=== PATIENT | female | born 1970 | race Caucasian/White ===

== ENCOUNTER 2017-05-28 12:52 | Inpatient (IN) | payer OTHER ==
[2017-05-28 17:31] VITALS: BMI 34.5
--- NOTE | 2017-05-28 19:08 | HP ---
CIWA Score - CIWA Score Nausea/Vomitin-Mild Nausea/No Vomiting Muscle Tremors: 4-Moderate,w/Arms Extend Anxiety: 4-Mod. Anxious/Guarded Agitation: 4-Moderately Restless Paroxysmal Sweats: 1-Minimal Palms Moist Orientation: 0-Oriented Tacttile Disturbances: 0-None Auditory Disturbances: 0-None Visual Disturbances: 0-None Headache: 0-None Present CIWA-Ar Total Score: 14 Admission ROS S - HPI Chief Complaint: withdrawal sx Allergies/Adverse Reactions: Allergies Allergy/AdvReac Type Severity Reaction Status Date / Time No Known Allergies Allergy Verified 05/28/17 17:44 History of Present Illness: 46 years old female with long history of xanax nicotine dependence has hepatitis c and varicose vein both legs x 10 years asthma, and depression is admitted to detox Exam Limitations: No Limitations - Ebola screening Have you traveled outside of the country in the last 21 days: No Have you had contact with anyone from an Ebola affected area: No Have you been sick,other than usual withdrawal symptoms: No Do you have a fever: No - Review of Systems Constitutional: Changes in sleep, Weight Stable EENT: reports: Blurred Vision (needs eye glasses) Respiratory: reports: SOB with Exertion Cardiac: reports: Edema (both legs) GI: reports: Nausea, Poor Fluid Intake, Abdominal cramping : reports: No Symptoms Reported Musculoskeletal: reports: Joint Pain (knees), Muscle Pain (legs) Integumentary: reports: Change in Color (both legs varicos veins) Neuro: reports: Tremors Endocrine: reports: No Symptoms Reported Hematology: reports: No Symptoms Reported Psychiatric: reports: Judgement Intact, Orientated x3, Depressed Other Systems: Reviewed and Negative Patient History - Patient Medical History Hx Anemia: No Hx Asthma: Yes Hx Chronic Obstructive Pulmonary Disease (COPD): No Hx Cancer: No Hx Cardiac Disorders: No Hx Congestive Heart Failure: No Hx Hypertension: No Hx Hypercholesterolemia: No Hx Pacemaker: No HX Cerebrovascular Accident: No Hx Seizures: No Hx Dementia: No Hx Diabetes: No Hx Gastrointestinal Disorders: No Hx Liver Disease: No Hx Genitourinary Disorders: No Hx Sexually Transmitted Disorders: No Hx Renal Disease (ESRD): No Hx Thyroid Disease: No Hx Human Immunodeficiency Virus (HIV): No Hx Hepatitis C: Yes Hx Depression: Yes Hx Suicide Attempt: No Hx Bipolar Disorder: No Hx Schizophrenia: No - Patient Surgical History Past Surgical History: Yes Hx Neurologic Surgery: No Hx Cataract Extraction: No Hx Cardiac Surgery: No Hx Lung Surgery: No Hx Breast Surgery: No Hx Breast Biopsy: No Hx Abdominal Surgery: No Hx Appendectomy: No Hx Cholecystectomy: No Hx Genitourinary Surgery: No Hx Section: Yes (x 1 2000) Hx Orthopedic Surgery: No Hx Hysterectomy: No Anesthesia Reaction: No - PPD History Previous Implant?: Yes Documented Results: Negative w/o proof Implanted On Prior [facility] Admission?: No PPD to be Administered?: Yes - Smoking Cessation Smoking history: Current every day smoker Have you smoked in the past 12 months: Yes Aproximately how many cigarettes per day: 4 Cigars Per Day: 0 Hx Chewing Tobacco Use: No Initiated information on smoking cessation: Yes 'Breaking Loose' booklet given: 05/28/17 - Substance & Tx. History Hx Alcohol Use: No Hx Substance Use: Yes Substance Use Type: Tranquilizers Hx Substance Use Treatment: Yes (2014) - Substances Abused Alprazolam (Xanax) Route: Oral Frequency: Daily Amount used: 8mg Age of first use: 17 Date of Last Use: 05/28/17 Family Disease History - Family Disease History Family Disease History: Diabetes: Brother, [place]: Mother (), Other: Father (no contact), Mother Admission Physical Exam BHS - Vital Signs Vital Signs: Vital Signs - 24 hr 05/28/17 17:28 Temperature 97.3 F L Pulse Rate 67 Respiratory 18 Rate Blood Pressure 125/70 - Physical General Appearance: Yes: Appropriately Dressed, Mild Distress, Obese, Tremorous , Irritable, Sweating, Anxious HEENTM: Yes: Hearing grossly Normal, Normal ENT Inspection, Normocephalic, Normal Voice Respiratory: Yes: Chest Non-Tender, No Respiratory Distress, No Accessory Muscle Use, Wheezing Neck: Yes: Supple, Trachea in good position Breast: Yes: Breasts Symetrical Cardiology: Yes: Regular Rhythm, Regular Rate, S1, S2 Abdominal: Yes: Normal Bowel Sounds, Non Tender, Soft Genitourinary: Yes: Within Normal Limits Back: Yes: Normal Inspection Musculoskeletal: Yes: full range of Motion, Gait Steady, Muscle Pain (legs) Extremities: Yes: Normal Range of Motion, Non-Tender, Tremors, Swelling (both legs) Neurological: Yes: Fully Oriented, Alert, Motor Strength 5/5, Normal Response, Depressed Affect Integumentary: Yes: Warm, Erythema (both legs) Lymphatic: Yes: Within Normal Limits - Diagnostic (1) Sedative, hypnotic or anxiolytic dependence with withdrawal, uncomplicated Current Visit: Yes Status: Acute (2) Cocaine dependence, uncomplicated Current Visit: Yes Status: Chronic (3) Methadone maintenance therapy patient Current Visit: Yes Status: Chronic Comment: 115 mg verification pending (4) Nicotine dependence Current Visit: Yes Status: Acute Qualifiers: Nicotine product type: cigarettes Substance use status: in withdrawal Qualified Code(s): F17.213 - Nicotine dependence, cigarettes, with withdrawal; F17.213 - Nicotine dependence, cigarettes, with withdrawal (5) Hepatitis C carrier Current Visit: Yes Status: Chronic (6) Asthma Current Visit: Yes Status: Chronic Qualifiers: Asthma severity: mild (7) Varicose vein of leg Current Visit: Yes Status: Chronic (8) Depression (emotion) Current Visit: Yes Status: Suspected Qualifiers: Depression Type: dysthymia Qualified Code(s): F34.1 - Dysthymic disorder; F34.1 - Dysthymic disorder; F34.1 - Dysthymic disorder Cleared for Admission [facility] - Detox or Rehab [facility] Level of Care: Medically Managed Detox Regimen/Protocol: Valium [facility] Breath Alcohol Content Breath Alcohol Content: 0 Urine Pregancy Test - Result Urine Test Results: Negative- NO Line Present Urine Drug Screen - Results Drug Screen Negative: No Urine Drug Screen Results: EMMETT-Cocaine, OPI-Opiates, BZO-Benzodiazepines, MTD- Methadone
[2017-05-28] MEDS ORDERED: MENTHOL/PHENOL 1 EACH UD MM PRN (19:11)
[2017-05-28] MEDS ORDERED: MAG HYDROX/AL HYDROX/SIMETH 30 ML UNIT-DOSE CUP PO PRN (19:11)
[2017-05-28] MEDS ORDERED: ACETAMINOPHEN 325 MG TABLET (FP) PO PRN (19:11)
[2017-05-28] MEDS ORDERED: diazePAM 5 MG TABLET PO ONE (19:11)
[2017-05-28] MEDS ORDERED: guaiFENesin/D-METHORPHAN HB 10 ML UNIT-DOSE CUPS PO PRN (19:11)
[2017-05-28] MEDS ORDERED: P-EPHED 60MG/TRIPROLIDI 2.5MG TABLET PO PRN (19:11)
[2017-05-28] MEDS ORDERED: LOPERAMIDE HCL 2 MG CAPSULE PO PRN (19:11)
[2017-05-28] MEDS ORDERED: MAGNESIUM HYDROX 2400MG/30ML ORAL SUSPENSION 30 ML CUP PO PRN (19:11)
[2017-05-28] MEDS ORDERED: MAGNESIUM CITRATE 300 ML BOTTLE PO PRN (19:11)
[2017-05-28] MEDS ORDERED: NICOTINE POLACRILEX 2 MG GUM BUC PRN (19:11)
[2017-05-28] MEDS ORDERED: ALBUTEROL SO4 18 GM HFA INHALER IH PRN (19:13)
[2017-05-28] MEDS: THIAMINE HCL 100 MG TABLET (FP) PO SCH (22:45)
[2017-05-28] MEDS: diazePAM 5 MG TABLET PO SCH (22:45)
[2017-05-29 01:51] LABS: URINE APPEARANCE SLCLOUDY; URINE BILIRUBIN NEGATIVE (NEGATIVE); URINE BLOOD NEGATIVE (NEGATIVE); URINE COLOR YELLOW; URINE GLUCOSE (UA) NEGATIVE (NEGATIVE); URINE KETONE NEGATIVE (NEGATIVE); URINE NITRITE NEGATIVE (NEGATIVE); URINE PROTEIN NEGATIVE (NEGATIVE); URINE UROBILINOGEN NEGATIVE mg/dL (0.2-1.0)
[2017-05-29] MEDS: diazePAM 5 MG TABLET PO SCH ×3 (06:11→22:23)
--- NOTE | 2017-05-29 09:26 | EKG ---
Test Reason : Blood Pressure : / mmHG Vent. Rate : 038 BPM Atrial Rate : 038 BPM P-R Int : 162 ms QRS Dur : 096 ms QT Int : 504 ms P-R-T Axes : 040 047 050 degrees QTc Int : 400 ms MARKED SINUS BRADYCARDIA WITH SINUS ARRHYTHMIA ABNORMAL ECG NO PREVIOUS ECGS AVAILABLE Confirmed by LOKESH SORIANO MD ([id number]) on 05/29/2017 9:25:54 AM Referred By: Confirmed By:LOKESH SORIANO MD
[2017-05-29 09:49] LABS: MCH 30.9 pg (25.7-33.7); MEAN CELL VOLUME 93.6 fl (80-96); PLATELET COUNT 130 K/MM3 (134-434); RDW 13.7 % (11.6-15.6); WHITE BLOOD COUNT 4.5 K/mm3 (4.0-10.0)
[2017-05-29 09:53] LABS: ALBUMIN 3.3 g/dl (3.4-5.0); ANION GAP 4 (8-16); CALCIUM 8.5 mg/dL (8.5-10.1); CO2 32 mmol/L (21-32); GLUCOSE,RANDOM 100 mg/dL (74-106); SGOT/AST 23 U/L (15-37); SGPT/ALT 22 U/L (12-78)
[2017-05-29 09:54] LABS: ALK PHOS 120 U/L (45-117); BILIRUBIN,TOTAL 0.3 mg/dL (0.2-1.0); TOT PROT 7.3 g/dl (6.4-8.2)
--- NOTE | 2017-05-29 09:55 | PN ---
[facility] CIWA - CIWA Score Nausea/Vomitin-No Nausea/No Vomiting Muscle Tremors: 4-Moderate,w/Arms Extend Anxiety: 4-Mod. Anxious/Guarded Agitation: 3 Paroxysmal Sweats: 3 Orientation: 0-Oriented Tacttile Disturbances: 1-Very Mild Itch/Numbness Auditory Disturbances: 0-None Visual Disturbances: 0-None Headache: 0-None Present CIWA-Ar Total Score: 15 BHS Progress Note (SOAP) Subjective: Body aches, Chills, Shakes, Interrupted sleep, Agitation, Restless Objective: Vital Signs Temperature 98.1 F 05/29/17 09:44 Pulse Rate 55 L 05/29/17 09:44 Respiratory Rate 18 05/29/17 09:44 Blood Pressure 154/74 05/29/17 09:44 O2 Sat by Pulse Oximetry (%) Laboratory Last Values Sodium 141 mmol/L (136-145) 05/29/17 07:00 Potassium 4.1 mmol/L (3.5-5.1) 05/29/17 07:00 Chloride 105 mmol/L (98-107) 05/29/17 07:00 Carbon Dioxide 32 mmol/L (21-32) 05/29/17 07:00 Anion Gap 4 (8-16) L 05/29/17 07:00 BUN 10 mg/dL (7-18) 05/29/17 07:00 Creatinine 1.0 mg/dL (0.55-1.02) 05/29/17 07:00 Creat Clearance w eGFR 59.69 (>60) 05/29/17 07:00 Random Glucose 100 mg/dL (74-106) 05/29/17 07:00 Calcium 8.5 mg/dL (8.5-10.1) 05/29/17 07:00 Total Bilirubin 0.3 mg/dL (0.2-1.0) 05/29/17 07:00 AST 23 U/L (15-37) 05/29/17 07:00 ALT 22 U/L (12-78) 05/29/17 07:00 Alkaline Phosphatase 120 U/L (45-117) H 05/29/17 07:00 Total Protein 7.3 g/dl (6.4-8.2) 05/29/17 07:00 Albumin 3.3 g/dl (3.4-5.0) L 05/29/17 07:00 Urine Color Yellow 05/28/17 21:51 Urine Appearance Slcloudy 05/28/17 21:51 Urine pH 7.0 (5.0-8.0) 05/28/17 21:51 Urine Protein Negative (NEGATIVE) 05/28/17 21:51 Urine Glucose (UA) Negative (NEGATIVE) 05/28/17 21:51 Urine Ketones Negative (NEGATIVE) 05/28/17 21:51 Urine Blood Negative (NEGATIVE) 05/28/17 21:51 Urine Nitrite Negative (NEGATIVE) 05/28/17 21:51 Urine Bilirubin Negative (NEGATIVE) 05/28/17 21:51 Urine Urobilinogen Negative mg/dL (0.2-1.0) 05/28/17 21:51 Labs noted Assessment: Withdrawal sx Plan: Continue detox
[2017-05-29] MEDS ORDERED: METHADONE HCL 10 MG TABLET PO ONE (09:59)
[2017-05-29] MEDS ORDERED: METHADONE HCL 40 MG DISPERSABLE TABLET ONE (10:20)
[2017-05-29] MEDS ORDERED: METHADONE HCL 10 MG TABLET ONE (10:21)
[2017-05-29] MEDS ORDERED: METHADONE HCL 5 MG TABLET ONE (10:22)
[2017-05-29 10:32] LABS: URINE LEUK ESTERASE Negative (NEGATIVE)
[2017-05-29] MEDS: NICOTINE 14 MG/24 HOURS TOPICAL PATCH TD SCH (10:59)
[2017-05-29] MEDS: PRENATAL VITAMINS W/ FOLIC ACID TABLET (FP) PO SCH (10:59)
[2017-05-29] MEDS: METHADONE 80 MG, METHADONE 30 MG, METHADONE 5 MG PO SCH (11:00)
--- NOTE | 2017-05-29 15:42 | CONSULT ---
[facility] Psychiatric Consult - Data Date of interview: 05/29/17 Admission source: [facility] Identifying data: First admission to [facility] for this 46 y/o female [facility] for xanax and cocaine dependence.Patient is single,mother of five,homeless,unemployed and supported on Public Assistance. Substance Abuse History: Discussed with the patient.She admits to this pattern of substance dependence. Smoking Cessation. Smoking history: Current every day smoker. Have you smoked in the past 12 months: Yes. Aproximately how many cigarettes per day: 4. Cigars Per Day: 0. Hx Chewing Tobacco Use: No. Initiated information on smoking cessation: Yes. 'Breaking Loose' booklet given : 05/28/17. - Substance & Tx. History. Hx Alcohol Use: No. Hx Substance Use: Yes. Substance Use Type: Tranquilizers. Hx Substance Use Treatment: Yes (2014) . - Substances Abused. Alprazolam (Xanax). Route: Oral. Frequency: Daily. Amount used: 8mg. Age of first use: 17. Date of Last Use: 05/28/17 Medical History: Hepatitis C,varicose veins (both extremities),bronchial asthma and a history of one section. Psychiatric History: No reported history of psychiatric hospitalizations.Used to be on zoloft.Patient is currently lost to OPD care.[facility] (daily dose of methadone = 115 mg).Denies history of suicide attempts. Physical/Sexual Abuse/Trauma History: Denies history of abuse.Stressor : loss of custody of his five year old son (ACS). Additional Comment: Urine Drug Screen Results: EMMETT-Cocaine, OPI-Opiates, BZO- Benzodiazepines, MTD-Methadone.Noted. Mental Status Exam - Mental Status Exam Alert and Oriented to: Time, Place, Person Cognitive Function: Good Patient Appearance: Well Groomed (obese) Mood: Nervous, Withdrawn Affect: Mood Congruent, Constricted Patient Behavior: Fatigued, Cooperative Speech Pattern: Clear Voice Loudness: Normal Thought Process: Goal Oriented Thought Disorder: Not Present Hallucinations: Denies Suicidal Ideation: Denies Homicidal Ideation: Denies Insight/Judgement: Poor Sleep: Well Appetite: Good Muscle strength/Tone: Normal Gait/Station: Normal Psychiatric Findings - Problem List ([place] 1, 2,3) (1) Sedative, hypnotic or anxiolytic dependence with withdrawal, uncomplicated Current Visit: Yes Status: Acute (2) Opioid dependence on agonist therapy Current Visit: Yes Status: Acute (3) Cocaine dependence, uncomplicated Current Visit: Yes Status: Acute (4) Nicotine dependence Current Visit: Yes Status: Acute Qualifiers: Nicotine product type: cigarettes Substance use status: in withdrawal Qualified Code(s): F17.213 - Nicotine dependence, cigarettes, with withdrawal; F17.213 - Nicotine dependence, cigarettes, with withdrawal (5) Substance induced mood disorder Current Visit: Yes Status: Acute (6) Asthma Current Visit: Yes Status: Chronic Qualifiers: Asthma severity: mild (7) Hepatitis C carrier Current Visit: Yes Status: Chronic (8) Varicose vein of leg Current Visit: Yes Status: Chronic - Initial Treatment Plan Initial Treatment Plan: Psychoeducation.Detoxification.Observation.
[2017-05-29] MEDS: THIAMINE HCL 100 MG TABLET (FP) PO SCH (22:22)
[2017-05-29] MEDS: diphenhydrAMINE HCL 50 MG CAPSULE PO PRN (22:22)
[2017-05-30] MEDS ORDERED: METHADONE HCL 40 MG DISPERSABLE TABLET ONE (04:37)
[2017-05-30] MEDS ORDERED: METHADONE HCL 10 MG TABLET ONE (04:38)
[2017-05-30] MEDS ORDERED: METHADONE HCL 40 MG DISPERSABLE TABLET PO SCH (06:00)
[2017-05-30] MEDS: METHADONE 80 MG, METHADONE 30 MG, METHADONE 5 MG PO SCH ×2 (06:02→10:43)
[2017-05-30] MEDS: diazePAM 5 MG TABLET PO PRN ×2 (06:05→17:22)
[2017-05-30] MEDS: NICOTINE 14 MG/24 HOURS TOPICAL PATCH TD SCH (10:42)
[2017-05-30] MEDS: diazePAM 5 MG TABLET PO SCH ×2 (10:43→22:44)
[2017-05-30] MEDS: PRENATAL VITAMINS W/ FOLIC ACID TABLET (FP) PO SCH (10:43)
--- NOTE | 2017-05-30 12:55 | EKG ---
Test Reason : Blood Pressure : / mmHG Vent. Rate : 047 BPM Atrial Rate : 047 BPM P-R Int : 168 ms QRS Dur : 094 ms QT Int : 498 ms P-R-T Axes : 059 049 053 degrees QTc Int : 440 ms SINUS BRADYCARDIA WITH SINUS ARRHYTHMIA INCOMPLETE RBBB WHEN COMPARED WITH ECG OF 28-MAY-2017 20:10, NO SIGNIFICANT CHANGE WAS FOUND Confirmed by LOKESH SORIANO MD ([id number]) on 05/30/2017 12:55:04 PM Referred By: Confirmed By:LOKESH SORIANO MD
--- NOTE | 2017-05-30 16:13 | PN ---
S CIWA - CIWA Score Nausea/Vomitin Muscle Tremors: 3 Anxiety: 3 Agitation: 3 Paroxysmal Sweats: 2 Orientation: 0-Oriented Tacttile Disturbances: 1-Very Mild Itch/Numbness Auditory Disturbances: 1-Very Mild Visual Disturbances: 0-None Headache: 2-Mild CIWA-Ar Total Score: 18 S Progress Note (SOAP) Subjective: alert,irritable,anxious,interrupted sleep,tremor Objective: 05/30/17 16:10 Vital Signs Temperature 97.9 F 05/30/17 14:03 Pulse Rate 46 L 05/30/17 14:03 Respiratory Rate 16 05/30/17 14:03 Blood Pressure 117/66 05/30/17 14:03 O2 Sat by Pulse Oximetry (%) ekg sinus bradycardia 47/min with sinus arrhythmia no chrst pain,no sob,no dizziness Laboratory Last Values WBC 4.5 K/mm3 (4.0-10.0) 05/29/17 07:00 RBC 4.33 M/mm3 (3.60-5.2) 05/29/17 07:00 Hgb 13.4 GM/dL (10.7-15.3) 05/29/17 07:00 Hct 40.5 % (32.4-45.2) 05/29/17 07:00 MCV 93.6 fl (80-96) 05/29/17 07:00 MCH 30.9 pg (25.7-33.7) 05/29/17 07:00 MCHC 33.0 g/dl (32.0-36.0) 05/29/17 07:00 RDW 13.7 % (11.6-15.6) 05/29/17 07:00 Plt Count 130 K/MM3 (134-434) L 05/29/17 07:00 MPV 9.0 fl (7.5-11.1) 05/29/17 07:00 Sodium 141 mmol/L (136-145) 05/29/17 07:00 Potassium 4.1 mmol/L (3.5-5.1) 05/29/17 07:00 Chloride 105 mmol/L (98-107) 05/29/17 07:00 Carbon Dioxide 32 mmol/L (21-32) 05/29/17 07:00 Anion Gap 4 (8-16) L 05/29/17 07:00 BUN 10 mg/dL (7-18) 05/29/17 07:00 Creatinine 1.0 mg/dL (0.55-1.02) 05/29/17 07:00 Creat Clearance w eGFR 59.69 (>60) 05/29/17 07:00 Random Glucose 100 mg/dL (74-106) 05/29/17 07:00 Calcium 8.5 mg/dL (8.5-10.1) 05/29/17 07:00 Total Bilirubin 0.3 mg/dL (0.2-1.0) 05/29/17 07:00 AST 23 U/L (15-37) 05/29/17 07:00 ALT 22 U/L (12-78) 05/29/17 07:00 Alkaline Phosphatase 120 U/L (45-117) H 05/29/17 07:00 Total Protein 7.3 g/dl (6.4-8.2) 05/29/17 07:00 Albumin 3.3 g/dl (3.4-5.0) L 05/29/17 07:00 Urine Color Yellow 05/28/17 21:51 Urine Appearance Slcloudy 05/28/17 21:51 Urine pH 7.0 (5.0-8.0) 05/28/17 21:51 Ur Specific [place] 1.015 (1.005-1.025) 05/28/17 21:51 Urine Protein Negative (NEGATIVE) 05/28/17 21:51 Urine Glucose (UA) Negative (NEGATIVE) 05/28/17 21:51 Urine Ketones Negative (NEGATIVE) 05/28/17 21:51 Urine Blood Negative (NEGATIVE) 05/28/17 21:51 Urine Nitrite Negative (NEGATIVE) 05/28/17 21:51 Urine Bilirubin Negative (NEGATIVE) 05/28/17 21:51 Urine Urobilinogen Negative mg/dL (0.2-1.0) 05/28/17 21:51 Ur Leukocyte Esterase Negative (NEGATIVE) 05/28/17 21:51 RPR Titer Nonreactive (NONREACTIVE) 05/29/17 07:00 Assessment: 05/30/17 16:12 withdrawal symptom Plan: continue detox
[2017-05-30] MEDS: THIAMINE HCL 100 MG TABLET (FP) PO SCH (22:44)
[2017-05-30] MEDS: diphenhydrAMINE HCL 50 MG CAPSULE PO PRN (22:44)
[2017-05-31] MEDS ORDERED: METHADONE HCL 40 MG DISPERSABLE TABLET ONE (06:36)
[2017-05-31] MEDS ORDERED: METHADONE HCL 10 MG TABLET ONE (06:36)
[2017-05-31] MEDS ORDERED: METHADONE HCL 5 MG TABLET ONE (06:37)
[2017-05-31] MEDS: METHADONE 80 MG, METHADONE 30 MG, METHADONE 5 MG PO SCH ×2 (06:41→10:26)
[2017-05-31] MEDS: diazePAM 5 MG TABLET PO PRN ×2 (06:44→17:45)
[2017-05-31] MEDS: IBUPROFEN 400 MG TABLET (FP) PO PRN (06:44)
[2017-05-31] MEDS: PRENATAL VITAMINS W/ FOLIC ACID TABLET (FP) PO SCH (10:51)
[2017-05-31] MEDS: TOLNAFTATE 1% CREAM 15 GM TUBE TP SCH ×2 (10:52→22:58)
[2017-05-31] MEDS: diazePAM 5 MG TABLET PO SCH ×2 (10:52→22:57)
[2017-05-31] MEDS: NICOTINE 14 MG/24 HOURS TOPICAL PATCH TD SCH (10:52)
--- NOTE | 2017-05-31 15:40 | PN ---
S Progress Note (SOAP) Subjective: ALERT,IRRITABLE,ANXIOUS,INTERRUPTED SLEEP, Objective: 05/31/17 15:39 Vital Signs Temperature 98.1 F 05/31/17 11:20 Pulse Rate 50 L 05/31/17 11:20 Respiratory Rate 16 05/31/17 11:20 Blood Pressure 131/78 05/31/17 11:20 O2 Sat by Pulse Oximetry (%) Assessment: 05/31/17 15:40 WITHDRAWAL SYMPTOM Plan: CONTINUE DETOX,DISCHARGE IN AM
[2017-05-31] MEDS: THIAMINE HCL 100 MG TABLET (FP) PO SCH (22:57)
[2017-05-31] MEDS: diphenhydrAMINE HCL 50 MG CAPSULE PO PRN (22:59)
[2017-06-01] MEDS ORDERED: METHADONE HCL 10 MG TABLET ONE ×2 (06:03→09:09)
[2017-06-01] MEDS ORDERED: METHADONE HCL 5 MG TABLET ONE ×2 (06:03→09:10)
[2017-06-01] MEDS ORDERED: METHADONE HCL 40 MG DISPERSABLE TABLET ONE ×2 (06:03→09:09)
[2017-06-01] MEDS: METHADONE 80 MG, METHADONE 30 MG, METHADONE 5 MG PO SCH ×2 (06:20→10:27)
[2017-06-01] MEDS: IBUPROFEN 400 MG TABLET (FP) PO PRN (06:20)
[2017-06-01 06:33] VITALS: TEMP 97.1
--- NOTE | 2017-06-01 08:50 | DS ---
[facility] Detox Discharge Summary Admission Date: 05/28/17 Discharge Date: 06/01/17 - History Present History: Cocaine Dependence, Sedative Dependence, MMTP - Physical Exam Results Vital Signs: Vital Signs Temperature 97.1 F L 06/01/17 06:00 Pulse Rate 53 L 06/01/17 06:00 Respiratory Rate 18 06/01/17 06:00 Blood Pressure 146/81 06/01/17 06:00 O2 Sat by Pulse Oximetry (%) - Treatment Hospital Course: Detox Protocol Followed, Detoxed Safely, Responded well, Discharged Condition Good, Rehab Referral Accepted - Medication Discharge Medications: Ambulatory Orders NK [No Known Home Medication] 05/28/17 - Diagnosis (1) Cocaine dependence, uncomplicated Current Visit: Yes Status: Chronic (2) Nicotine dependence Current Visit: Yes Status: Chronic Qualifiers: Nicotine product type: cigarettes Substance use status: uncomplicated Qualified Code(s): F17.210 - Nicotine dependence, cigarettes, uncomplicated; F17.210 - Nicotine dependence, cigarettes, uncomplicated (3) Opioid dependence on agonist therapy Current Visit: Yes Status: Acute (4) Sedative, hypnotic or anxiolytic dependence with withdrawal, uncomplicated Current Visit: Yes Status: Chronic (5) Substance induced mood disorder Current Visit: Yes Status: Acute (6) Asthma Current Visit: Yes Status: Chronic Qualifiers: Asthma severity: mild (7) Hepatitis C carrier Current Visit: Yes Status: Chronic (8) Methadone maintenance therapy patient Current Visit: Yes Status: Chronic (9) Varicose vein of leg Current Visit: Yes Status: Chronic (10) Depression (emotion) Current Visit: Yes Status: Suspected Qualifiers: Depression Type: dysthymia Qualified Code(s): F34.1 - Dysthymic disorder; F34.1 - Dysthymic disorder; F34.1 - Dysthymic disorder - AMA Did Patient Leave Against Medical Advice: No (going home)
[2017-06-01] MEDS ORDERED: diazePAM 5 MG TABLET PO SCH (10:00)
[2017-06-01] MEDS: TOLNAFTATE 1% CREAM 15 GM TUBE TP SCH (10:26)
[2017-06-01] MEDS: PRENATAL VITAMINS W/ FOLIC ACID TABLET (FP) PO SCH (10:26)
[2017-06-01] MEDS: NICOTINE 14 MG/24 HOURS TOPICAL PATCH TD SCH (10:26)
[2017-06-01 11:25] VITALS: BP 121/84; PULSE 101
== END 2017-06-01 11:06 | disposition other institution (70) | DRG 773 ==
LOC: YASAS 12:52 → Y6N 19:25
PROVIDERS: ADMIT Internal Medicine; ATTEND Internal Medicine
PROC: HZ2ZZZZ Detoxification Services for Substance Abuse Treatment (ICD-10-PCS; principal; 2017-05-28)
DX: F11.20 Opioid dependence, uncomplicated (principal); F13.230 Sedative, hypnotic or anxiolytic dependence with withdrawal, uncomplicated; F14.20 Cocaine dependence, uncomplicated; F17.210 Nicotine dependence, cigarettes, uncomplicated; F19.24 Other psychoactive substance dependence with psychoactive substance-induced mood disorder; F34.1 Dysthymic disorder; J45.20 Mild intermittent asthma, uncomplicated; I83.90 Asymptomatic varicose veins of unspecified lower extremity
CPT/HCPCS: 36415; 80053; 81003; 85027; 86593; 93005; 93010

== ENCOUNTER 2018-11-10 23:34 | Emergency (ER) | payer OTHER ==
[2018-11-10 23:38] VITALS: BP 178/69; PULSE 60; TEMP 97.8; BMI 49.6
== END 2018-11-11 00:36 | disposition left against medical advice (07) ==
LOC: JER 23:34
DX: Z53.21 Procedure and treatment not carried out due to patient leaving prior to being seen by health care provider (principal)
CPT/HCPCS: 99281-25

== ENCOUNTER 2018-11-11 02:49 | Emergency (ER) | payer OTHER ==
[2018-11-11 03:08] VITALS: BMI 49.6
--- NOTE | 2018-11-11 05:12 | PDOC ---
*Physical Exam - Vital Signs Last Vital Signs Temp Pulse Resp BP Pulse Ox 97.6 F 60 18 169/72 96 11/11/18 03:06 11/11/18 03:06 11/11/18 03:06 11/11/18 03:06 11/11/18 03:06 Medical Decision Making - Medical Decision Making 11/11/18 05:12 Patient seen by the advanced practice provider under my direct supervision. Ancillary testing reviewed as necessary. I agree with plan as outlined by the advanced practice provider. *DC/Admit/Observation/Transfer - Referrals Referrals: ON STAFF,NOT [Primary Care Provider] - - Patient Instructions - Post Discharge Activity
[2018-11-11] MEDS ORDERED: methylPREDNISolone NA SUCC 125 MG/2 ML VIAL IVPUSH ONE (05:24)
[2018-11-11] MEDS: ALBUTEROL SO4 2.5/IPRATROPIUM 0.5 INH SOL 3 ML VIAL.NEB. NEB SCH ×4 (05:30→06:11)
[2018-11-11] MEDS ORDERED: ALBUTEROL SO4 2.5/IPRATROPIUM 0.5 INH SOL 3 ML VIAL.NEB. NEB ONE (05:31)
[2018-11-11] MEDS ORDERED: methylPREDNISolone NA SUCC 125 MG/2 ML VIAL ONE (05:32)
[2018-11-11 05:56] LABS: EOS % 4.1 % (0-4.5); HEMATOCRIT 40.8 % (32.4-45.2); HEMOGLOBIN 13.4 GM/dL (10.7-15.3); LYMPH % 41.2 % (8-40); MCH 30.4 pg (25.7-33.7); MCHC 32.8 g/dl (32.0-36.0); MEAN CELL VOLUME 92.6 fl (80-96); MONO % 9.8 % (3.8-10.2); NEUT % 43.9 % (42.8-82.8); PLATELET COUNT 157 K/MM3 (134-434); RBC 4.41 M/mm3 (3.60-5.2); RDW 13.6 % (11.6-15.6); WHITE BLOOD COUNT 4.3 K/mm3 (4.0-10.0)
--- NOTE | 2018-11-11 05:59 | PDOC ---
History of Present Illness - General Chief Complaint: Pain, Acute Stated Complaint: LEG PAIN Time Seen by Provider: 11/11/18 04:57 History Source: Patient Exam Limitations: No Limitations - History of Present Illness Initial Comments: 11/11/18 05:29 HISTORY OF PRESENT ILLNESS: 47-year-old woman with past medical history of hepatitis C, IVDA on methadone maintenance at [facility], benzodiazepine dependence, venous stasis ulcers who presents emergency department for evaluation of venous stasis ulcers to bilateral legs. Patient attempted to go to detox at [facility] and on intake was noted to have stasis ulcers. Patient was sent to the emergency department for evaluation for potential admission. Patient states she has had antibiotics as an outpatient with minimal relief of symptoms. No recent travel or sick contacts. PAST MEDICAL HISTORY: see HPI SURGICAL HISTORY: Denies ALLERGIES: No known drug allergies REVIEW OF SYSTEMS General/Constitutional: Denies fever or chills. Denies weakness, weight change. HEENT: Denies change in vision. Denies ear pain or discharge. Denies sore throat. Cardiovascular: Denies chest pain or shortness of breath. Respiratory: Denies cough, wheezing, or hemoptysis. Gastrointestinal: Denies nausea, vomiting, diarrhea or constipation. Denies rectal bleeding. Genitourinary: Denies dysuria, frequency, or change in urination. Musculoskeletal: Denies joint or muscle swelling or pain. Denies neck or back pain. Skin and breasts: see HPI Neurologic: Denies headache, vertigo, loss of consciousness, or loss of sensation. Psychiatric: Denies depression or anxiety. Endocrine: Denies increased thirst. Denies abnormal weight change. Hematologic/Lymphatic: Denies anemia, easy bleeding, or history of blood clots. Allergic/Immunologic: Denies hives or skin allergy. Denies latex allergy. PHYSICAL EXAM General Appearance: Well-appearing, appropriately dressed. No apparent distress , no intoxication. HEENT: EOMI, PERRLA, normal ENT inspection, normal voice, TMs normal, pharynx normal. No conjunctival pallor. No photophobia, scleral icterus. Neck: Supple. Trachea midline. No tenderness, rigidity, carotid bruit, stridor , lymphadenopathy, or thyromegaly. Respiratory/Chest: Scattered inspiratory and expiratory wheezes present in all brooks. Patient is speaking in full sentences. Respirations are even and unlabored. Cardiovascular: RRR. S1, S2. No JVD, murmur, bradycardia, tachycardia. Vascular Pulses: Dorsalis-Pedis (R): 2+, Dorsalis-Pedis (L): 2+ Gastrointestinal/Abdominal: Normal bowel sounds. Abdomen soft, non-distended. No tenderness or rebound tenderness. No organomegaly, pulsatile mass, guarding, hernia, hepatomegaly, splenomegaly. Lymphatic: No adenopathy, tenderness. Musculoskeletal/Extremities: Venous stasis changes present to distal third of bilateral lower extremities with venous stasis ulcers present to the medial aspects of bilateral lower extremities. Erythema with warmth to touch surrounding ulcers. Edema present bilateral lower extremities with the left greater than right. Calf tenderness in the left leg. Integumentary: Venous stasis changes present to bilateral lower extremities. Neurologic: kitchen steward/stewardess II-XII intact. Fully oriented, alert. Appropriate mood/affect. Motor strength 5/5. No appreciable EOM palsy, facial droop or sensory deficit. 11/11/18 06:00 11/11/18 06:10 Past History - Past Medical History Allergies/Adverse Reactions: Allergies Allergy/AdvReac Type Severity Reaction Status Date / Time No Known Allergies Allergy Verified 11/11/18 15:24 Home Medications: Ambulatory Orders Atomoxetine HCl [Strattera -] 40 mg PO DAILY 11/11/18 Budesonide/Formeterol Fumarate [SYMBICORT 80/4.5mcg -] 1 inh PO BID 11/11/18 Clindamycin [Cleocin -] 300 mg PO TID #21 capsule 11/11/18 Hydroxyzine Pamoate 50 mg PO HS PRN 11/11/18 Ibuprofen [Ibu] 800 mg PO TID PRN 11/11/18 Lisinopril 5 mg PO DAILY 11/11/18 Montelukast Na [Singulair -] 10 mg PO HS 11/11/18 Mupirocin 22 gm TP TID 11/11/18 Sertraline HCl [Zoloft] 100 mg PO DAILY 11/11/18 Anemia: No Asthma: Yes Cancer: No Cardiac Disorders: No CVA: No COPD: No CHF: No Dementia: No Diabetes: No GI Disorders: No Disorders: No HTN: No Hypercholesterolemia: No Kidney Stones: No Liver Disease: No Seizures: No Thyroid Disease: No - Surgical History Abdominal Surgery: No Appendectomy: No Cardiac Surgery: No Cholecystectomy: No Lung Surgery: No Neurologic Surgery: No Orthopedic Surgery: No - Suicide/Smoking/Psychosocial Hx Smoking History: Unknown if ever smoked Have you smoked in the past 12 months: No Number of Cigarettes Smoked Daily: 4 Cigars Per Day: 0 Information on smoking cessation initiated: No 'Breaking Loose' booklet given: 05/25/17 Hx Alcohol Use: Yes Drug/Substance Use Hx: Yes Substance Use Type: Heroin, Tranquilizers Hx Substance Use Treatment: Yes (completed inpatient [facility] Jul 2016) *Physical Exam - Vital Signs Last Vital Signs Temp Pulse Resp BP Pulse Ox 97.6 F 60 18 169/72 96 11/11/18 03:06 11/11/18 03:06 11/11/18 03:06 11/11/18 03:06 11/11/18 03:06 ED Treatment Course - LABORATORY CBC & Chemistry Diagram: 11/11/18 05:20 11/11/18 05:20 - RADIOLOGY Radiology Studies Ordered: Category Date Time Status CHEST PA & LAT [RAD] Stat Radiology 11/11/18 05:24 Ordered DUPLEX VASCUL US-1 LEG [US] Stat Ultrasound 11/11/18 05:25 Ordered Medical Decision Making - Medical Decision Making 11/11/18 06:00 A/P: 47-year-old woman with cellulitis to venous stasis ulcers bilaterally Labs including blood cultures EKG Chest x-ray Duplex Doppler of the left lower extremity clindamycin 600mg IV DuoNeb 4 Methylprednisone 125 mg IV Possible Admission 11/11/18 06:49 Patient signed out to nurse practitioner Genaro. *DC/Admit/Observation/Transfer Diagnosis at time of Disposition: Cellulitis, Venous stasis of both lower extremities - Discharge Dispostion Disposition: HOME Condition at time of disposition: Good - Prescriptions Prescriptions: Clindamycin [Cleocin -] 300 mg PO TID #21 capsule - Referrals Referrals: ON STAFF,NOT [Primary Care Provider] - - Patient Instructions Printed Discharge Instructions: DI for Cellulitis -- Adult Additional Instructions: PLease take Clindamycin today and keep area clean and dry. - Post Discharge Activity
[2018-11-11] MEDS ORDERED: CLINDAMYCIN 600MG PREMIX IVPB 600 MG/50 ML BAG IVPB ONE ×2 (06:05→06:13)
[2018-11-11 06:23] LABS: ALBUMIN 3.3 g/dl (3.4-5.0); ALK PHOS 113 U/L (45-117); ANION GAP 6 MMOL/L (8-16); BILIRUBIN,TOTAL 0.5 mg/dL (0.2-1); BLOOD UREA NITROGEN 13 mg/dL (7-18); CALCIUM 8.5 mg/dL (8.5-10.1); CHLORIDE 104 mmol/L (98-107); CO2 31 mmol/L (21-32); CREATININE 0.9 mg/dL (0.55-1.3); GLUCOSE,RANDOM 84 mg/dL (74-106); N-TERMINAL BNP 83.5 pg/ml (5-125); POTASSIUM 4.3 mmol/L (3.5-5.1); SGOT/AST 26 U/L (15-37); SGPT/ALT 22 U/L (13-61); SODIUM 140 mmol/L (136-145); TOT PROT 7.7 g/dl (6.4-8.2)
[2018-11-11 06:30] VITALS: TEMP 97.8
--- NOTE | 2018-11-11 07:36 | PDOC ---
*Physical Exam - Vital Signs Last Vital Signs Temp Pulse Resp BP Pulse Ox 97.8 F 56 L 18 114/69 87 L 11/11/18 06:29 11/11/18 06:29 11/11/18 03:06 11/11/18 06:29 11/11/18 06:29 ED Treatment Course - LABORATORY CBC & Chemistry Diagram: 11/11/18 05:20 11/11/18 05:20 - ADDITIONAL ORDERS Additional order review: Laboratory Results 11/11/18 05:20 Sodium 140 Potassium 4.3 Chloride 104 Carbon Dioxide 31 Anion Gap 6 L BUN 13 Creatinine 0.9 Creat Clearance w eGFR 67.11 Random Glucose 84 Calcium 8.5 Total Bilirubin 0.5 AST 26 ALT 22 Alkaline Phosphatase 113 B-Natriuretic Peptide 83.5 Total Protein 7.7 Albumin 3.3 L 11/11/18 05:20 RBC 4.41 MCV 92.6 MCHC 32.8 RDW 13.6 MPV 8.0 D Neutrophils % 43.9 Lymphocytes % 41.2 H Monocytes % 9.8 Eosinophils % 4.1 Basophils % 1.0 - Medications Given in the ED: ED Medications Discontinued Medications Generic Name Dose Route Start Last Admin Trade Name Freq PRN Reason Stop Dose Admin Albuterol/Ipratropium 1 amp 11/11/18 05:30 11/11/18 06:11 Duoneb - NEB 11/11/18 06:16 1 amp Q15M MARILUZ Administration Clindamycin Phosphate 600 mg in 50 mls @ 100 mls/hr 11/11/18 06:05 11/11/18 06:19 Cleocin 600 Mg Premix Ivpb - IVPB 11/11/18 06:34 100 mls/hr ONCE ONE Administration Methylprednisolone Sodium Succinate 125 mg 11/11/18 05:24 11/11/18 05:45 Solu-Medrol - IVPUSH 11/11/18 05:25 125 mg ONCE ONE Administration Medical Decision Making - Medical Decision Making 11/11/18 07:15 Patient received in signout from BARBIE Mcguire. Patient here with lower extremity wounds suggestive of cellulitis. Patient given a dose of clindamycin and is pending an ultrasound. Patient also pending chest x-ray secondary to wheezing noted on exam. If negative will discharge to [facility] with antibiotics. 11/11/18 10:10 Duplex of Extremity shows no DVT. CXR - for acute pathology. Pt requesting her methadone. Dose confirmed at clinic, 130mg given here 11/12/18 07:40 *DC/Admit/Observation/Transfer Diagnosis at time of Disposition: Cellulitis, Venous stasis of both lower extremities - Discharge Dispostion Disposition: HOME Condition at time of disposition: Good - Prescriptions Prescriptions: Clindamycin [Cleocin -] 300 mg PO TID #21 capsule - Referrals Referrals: ON STAFF,NOT [Primary Care Provider] - - Patient Instructions Printed Discharge Instructions: DI for Cellulitis -- Adult Additional Instructions: PLease take Clindamycin today and keep area clean and dry. - Post Discharge Activity
[2018-11-11] MEDS ORDERED: METHADONE HCL 10 MG TABLET PO ONE (09:25)
[2018-11-11] MEDS ORDERED: METHADONE HCL 10 MG TABLET ONE (09:30)
[2018-11-11] MEDS ORDERED: METHADONE HCL 40 MG DISPERSABLE TABLET ONE (09:31)
[2018-11-11 10:08] LABS: HCG,QUALITATIVE URINE Negative
[2018-11-11 10:21] VITALS: BP 123/78; PULSE 96
[2018-11-11 10:27] LABS: EPI CELLS 2.7 /HPF (0-5); URINE APPEARANCE CLEAR; URINE BACTERIA 3.2 /hpf (NEGATIVE); URINE BILIRUBIN NEGATIVE (NEGATIVE); URINE CASTS 3 /hpf (0-8); URINE COLOR YELLOW; URINE GLUCOSE (UA) NEGATIVE (NEGATIVE); URINE KETONE NEGATIVE (NEGATIVE); URINE LEUK ESTERASE 1+ (NEGATIVE); URINE NITRITE NEGATIVE (NEGATIVE); URINE PROTEIN NEGATIVE (NEGATIVE); URINE RBC 0 /hpf (0-4); URINE WBC 1 /hpf (0-5)
== END 2018-11-11 10:20 | disposition home or self-care (01) ==
LOC: JER 02:49
PROC: 3E03329 Introduction of Other Anti-infective into Peripheral Vein, Percutaneous Approach (ICD-10-PCS; principal; 2018-11-11)
PROC: 3E0F7GC Introduction of Other Therapeutic Substance into Respiratory Tract, Via Natural or Artificial Opening (ICD-10-PCS; 2018-11-11)
DX: I83.218 Varicose veins of right lower extremity with both ulcer of other part of lower extremity and inflammation (principal); I83.228 Varicose veins of left lower extremity with both ulcer of other part of lower extremity and inflammation; L97.811 Non-pressure chronic ulcer of other part of right lower leg limited to breakdown of skin; L03.115 Cellulitis of right lower limb; L03.116 Cellulitis of left lower limb; J45.909 Unspecified asthma, uncomplicated; F11.20 Opioid dependence, uncomplicated
CPT/HCPCS: 36415; 71046-TC-FY; 80053; 81003; 83880; 84703; 85025; 87040; 87086; 93971-TC; 99283-25

== ENCOUNTER 2018-11-11 10:39 | Inpatient (IN) | payer OTHER ==
[2018-11-11 11:51] VITALS: BMI 41.8
--- NOTE | 2018-11-11 14:48 | HP ---
CIWA Score Nausea/Vomitin Muscle Tremors: 2 Anxiety: 2 Agitation: 2 Paroxysmal Sweats: 1-Minimal Palms Moist Orientation: 0-Oriented Tacttile Disturbances: 1-Very Mild Itch/Numbness Auditory Disturbances: 1-Very Mild Visual Disturbances: 0-None Headache: 2-Mild CIWA-Ar Total Score: 13 - Admission Criteria [facility] Guidelines: Admission for Medically Managed Detox: Requires at least one of the followin. CIWA greater than 12 2. Seizures within the past 24 hours 3. Delirium tremens within the past 24 hours 4. Hallucinations within the past 24 hours 5. Acute intervention needed for co occurring medical disorder 6. Acute intervention needed for co occurring psychiatric disorder 7. Severe withdrawal that cannot be handled at a lower level of care (continued vomiting, continued diarrhea, abnormal vital signs) requiring intravenous medication and/or fluids 8. Admission ROS S - [facility] Chief Complaint: i am here for detox from xanax Allergies/Adverse Reactions: Allergies Allergy/AdvReac Type Severity Reaction Status Date / Time No Known Allergies Allergy Verified 11/11/18 15:24 History of Present Illness: this 47 years old female with xanax dependence seeking detox from xanax,mmtp, medically clear fro [facility] to come in for detox, last treatment [facility] 05/28/17 to 06/01/17 detox,rehab 06/01/17 to 06/22/17 seen [facility] had sonogram of left leg negative for blood clot,treated with cellulitis of left leg receiving clindamycin yesterday mmtp 130 mgs/day,last medicated today chronic venous stasis ulcers for 2 months hepatitis c not treated yet longest period of sobriety 10 years had one boy 6 years old in foster care plan to go to rehab after detox Exam Limitations: No Limitations - Ebola screening Have you traveled outside of the country in the last 21 days: No Have you had contact with anyone from an Ebola affected area: No Have you been sick,other than usual withdrawal symptoms: No Do you have a fever: No - Review of Systems Constitutional: Loss of Appetite, Malaise, Night Sweats, Changes in sleep, Weakness EENT: reports: Tearing, Nose Congestion Respiratory: reports: No Symptoms reported Cardiac: reports: No Symptoms Reported GI: reports: Nausea, Abdominal cramping : reports: No Symptoms Reported Musculoskeletal: reports: Back Pain, Muscle Pain Integumentary: reports: Dryness Neuro: reports: Headache, Tremors Endocrine: reports: No Symptoms Reported Hematology: reports: No Symptoms Reported Psychiatric: reports: No Sypmtoms Reported, Judgement Intact, Mood/Affect Appropiate, Orientated x3, Agitated, Depressed Other Systems: Reviewed and Negative Patient History - Patient Medical History Hx Anemia: No Hx Asthma: Yes (on albutrol inhaler,symbicort,singulair) Hx Chronic Obstructive Pulmonary Disease (COPD): No Hx Cancer: No Hx Cardiac Disorders: No Hx Congestive Heart Failure: No Hx Hypertension: No Hx Hypercholesterolemia: No Hx Pacemaker: No HX Cerebrovascular Accident: No Hx Seizures: No Hx Dementia: No Hx Diabetes: No Hx Gastrointestinal Disorders: No Hx Liver Disease: Yes (hepatitis c) Hx Genitourinary Disorders: No Hx Sexually Transmitted Disorders: No Hx Renal Disease (ESRD): No Hx Thyroid Disease: No Hx Human Immunodeficiency Virus (HIV): No (last 06/03 negative) Hx Hepatitis C: Yes (no treatment) Hx Depression: Yes (anxiety) Hx Suicide Attempt: No Hx Bipolar Disorder: No Hx Schizophrenia: No Other Medical History: no suicidal,no homicidal - Patient Surgical History Past Surgical History: Yes Hx Neurologic Surgery: No Hx Cataract Extraction: No Hx Cardiac Surgery: No Hx Lung Surgery: No Hx Breast Surgery: No Hx Breast Biopsy: No Hx Abdominal Surgery: No Hx Appendectomy: No Hx Cholecystectomy: No Hx Genitourinary Surgery: No Hx Section: Yes (x 1 2000) Hx Orthopedic Surgery: No Hx Hysterectomy: No Anesthesia Reaction: No - PPD History Previous Implant?: Yes Documented Results: Negative w/o proof Date: 05/30/17 Results: 0mm PPD to be Administered?: Yes - Reproductive History Patient is a Female of Child Bearing Age (11 -55 yrs old): Yes Last Menstrual Period: 02/04/17 Patient : No - Smoking Cessation Smoking history: Unknown if ever smoked Have you smoked in the past 12 months: No Aproximately how many cigarettes per day: 4 Cigars Per Day: 0 Hx Chewing Tobacco Use: No Initiated information on smoking cessation: Yes 'Breaking Loose' booklet given: 11/11/18 - Substance & Tx. History Hx Alcohol Use: No Hx Substance Use: Yes Substance Use Type: Tranquilizers Hx Substance Use Treatment: Yes ([facility] 05/28/17 to 06/01/17 detox,rehab 06/01/17 to 06/22/17) - Substances Abused Alprazolam (Xanax) Route: Oral Frequency: Daily Amount used: 10 mgs to 12 mgs Age of first use: 17 Date of Last Use: 11/10/18 Family Disease History - Family Disease History Family Disease History: Diabetes: Brother, [place]: Mother (), Other: Father (no contact), Mother Admission Physical Exam [facility] - Vital Signs Vital Signs: Vital Signs - 24 hr 11/11/18 11:42 Temperature 96.8 F L Pulse Rate 65 Respiratory 18 Rate Blood Pressure 131/92 - Physical General Appearance: Yes: Moderate Distress, Tremorous, Sweating, Anxious HEENTM: Yes: Normal ENT Inspection, KARIME, Pharynx Normal Respiratory: Yes: Lungs Clear, Normal Breath Sounds, No Respiratory Distress Neck: Yes: Within Normal Limits, Supple, Trachea in good position Breast: Yes: Breast Exam Deferred Cardiology: Yes: Within Normal Limits, Regular Rhythm, Regular Rate, S1, S2 Abdominal: Yes: Within Normal Limits, Normal Bowel Sounds, Non Tender, Soft Genitourinary: Yes: Within Normal Limits Back: Yes: Muscle Spasm Musculoskeletal: Yes: Back pain, Muscle Pain Extremities: Yes: Within Normal Limits, Normal Range of Motion, Tremors, Inflammation (venous stasis both leg cellulitis) Neurological: Yes: biomedical technician II-XII NML intact, Fully Oriented, Alert, Motor Strength 5/5 Integumentary: Yes: Dry, Other (stasis ulcers both legs with cellulitis) - Diagnostic (1) Nicotine dependence Current Visit: No Status: Chronic Qualifiers: Nicotine product type: cigarettes Substance use status: uncomplicated Qualified Code(s): F17.210 - Nicotine dependence, cigarettes, uncomplicated (2) Opioid dependence on agonist therapy Current Visit: No Status: Chronic (3) Sedative, hypnotic or anxiolytic dependence with withdrawal, uncomplicated Current Visit: No Status: Chronic (4) Varicose vein of leg Current Visit: No Status: Chronic (5) Venous stasis of both lower extremities Current Visit: No Status: Acute (6) Bilateral lower leg cellulitis Current Visit: Yes Status: Acute Cleared for Admission [facility] - Detox or Rehab [facility] Level of Care: Medically Managed Detox Regimen/Protocol: Valium [facility] Breath Alcohol Content Breath Alcohol Content: 0 Urine Pregancy Test - Result Urine Test Results: Negative - NO line present Urine Drug Screen - Results Drug Screen Negative: No Urine Drug Screen Results: BZO-Benzodiazepines, MTD-Methadone Inpatient Rehab Admission - Rehab Decision to Admit Inpatient rehab admission?: No
[2018-11-11] MEDS ORDERED: MAG HYDROX/AL HYDROX/SIMETH 30 ML UNIT-DOSE CUP PO PRN (15:04)
[2018-11-11] MEDS ORDERED: MAGNESIUM HYDROX 2400MG/30ML ORAL SUSPENSION 30 ML CUP PO PRN (15:04)
[2018-11-11] MEDS ORDERED: ACETAMINOPHEN 325 MG TABLET (FP) PO PRN ×2 (15:04)
[2018-11-11] MEDS ORDERED: MENTHOL/PHENOL 1 EACH UD MM PRN (15:04)
[2018-11-11] MEDS ORDERED: MAGNESIUM CITRATE 300 ML BOTTLE PO PRN (15:04)
[2018-11-11] MEDS ORDERED: IBUPROFEN 400 MG TABLET (FP) PO PRN (15:04)
[2018-11-11] MEDS ORDERED: hydrOXYzine PAMOATE 25 MG CAPSULE (FP) PO PRN ×2 (15:04→15:44)
[2018-11-11] MEDS ORDERED: MELATONIN 5 MG TABLETS PO PRN (15:04)
[2018-11-11] MEDS ORDERED: BISMUTH SUBSALICYLATE 262 MG/15 ML BTL PO PRN (15:04)
[2018-11-11] MEDS: diazePAM 5 MG TABLET PO PRN (17:55)
[2018-11-11] MEDS: NICOTINE 14 MG/24 HOURS TOPICAL PATCH TD SCH (17:55)
[2018-11-11] MEDS ORDERED: CLINDAMYCIN HCL 300 MG CAPSULE PO SCH (22:00)
[2018-11-11] MEDS ORDERED: CLINDAMYCIN HCL 150 MG CAPSULE (FP) PO SCH (22:00)
[2018-11-11] MEDS: BUDESONIDE/FORMETEROL FUMARATE 80/4.5 mcg INHALER IH SCH (22:51)
[2018-11-11] MEDS: diazePAM 5 MG TABLET PO SCH (22:52)
[2018-11-11] MEDS: THIAMINE HCL 100 MG TABLET (FP) PO SCH (22:52)
[2018-11-11] MEDS: CLINDAMYCIN HCL 150 MG CAPSULE (FP) PO SCH (22:53)
[2018-11-11] MEDS: MONTELUKAST NA 10 MG TABLET PO SCH (22:53)
[2018-11-11] MEDS: SILVER SULFADIAZINE 1% TOP CREAM 400 GM JAR TP SCH (22:53)
[2018-11-12] MEDS: diazePAM 5 MG TABLET PO SCH ×3 (05:34→22:24)
[2018-11-12] MEDS: CLINDAMYCIN HCL 150 MG CAPSULE (FP) PO SCH ×3 (05:34→22:24)
[2018-11-12] MEDS ORDERED: METHADONE HCL 10 MG TABLET PO SCH (10:00)
[2018-11-12] MEDS: diazePAM 5 MG TABLET PO PRN ×2 (10:13→18:12)
[2018-11-12] MEDS: LISINOPRIL 5 MG TABLET (FP) PO SCH (10:13)
[2018-11-12] MEDS: PRENATAL VITAMINS W/ FOLIC ACID TABLET (FP) PO SCH (10:13)
[2018-11-12] MEDS: BUDESONIDE/FORMETEROL FUMARATE 80/4.5 mcg INHALER IH SCH ×2 (10:13→22:25)
[2018-11-12] MEDS: NICOTINE 14 MG/24 HOURS TOPICAL PATCH TD SCH (10:13)
[2018-11-12] MEDS: SILVER SULFADIAZINE 1% TOP CREAM 400 GM JAR TP SCH ×2 (10:16→22:25)
[2018-11-12 10:29] LABS: ALBUMIN 3.2 g/dl (3.4-5.0); ALK PHOS 113 U/L (45-117); ANION GAP 6 MMOL/L (8-16); BILIRUBIN,TOTAL 0.2 mg/dL (0.2-1); BLOOD UREA NITROGEN 19 mg/dL (7-18); CALCIUM 7.9 mg/dL (8.5-10.1); CHLORIDE 104 mmol/L (98-107); CO2 29 mmol/L (21-32); CREATININE 0.7 mg/dL (0.55-1.3); GLUCOSE,RANDOM 113 mg/dL (74-106); POTASSIUM 4.1 mmol/L (3.5-5.1); SGOT/AST 16 U/L (15-37); SGPT/ALT 18 U/L (13-61); SODIUM 139 mmol/L (136-145); TOT PROT 7.2 g/dl (6.4-8.2)
[2018-11-12 10:38] LABS: HEMATOCRIT 37.4 % (32.4-45.2); MCHC 32.2 g/dl (32.0-36.0); MEAN CELL VOLUME 93.3 fl (80-96); MEAN PLT VOLUME 8.9 fl (7.5-11.1); PLATELET COUNT 143 K/MM3 (134-434); RBC 4.01 M/mm3 (3.60-5.2); RDW 13.4 % (11.6-15.6); WHITE BLOOD COUNT 5.1 K/mm3 (4.0-10.0)
[2018-11-12] MEDS ORDERED: METHADONE HCL 40 MG DISPERSABLE TABLET ONE (10:50)
[2018-11-12] MEDS ORDERED: METHADONE HCL 10 MG TABLET ONE (10:50)
[2018-11-12] MEDS: METHADONE 120 MG, METHADONE 10 MG PO SCH (10:52)
--- NOTE | 2018-11-12 17:56 | PN ---
S CIWA - CIWA Score Nausea/Vomitin Muscle Tremors: 3 Anxiety: 3 Agitation: 1-Slight > Activity Paroxysmal Sweats: 3 Orientation: 0-Oriented Tacttile Disturbances: 2-Mild Itch/Numbness/Burn Auditory Disturbances: 0-None Visual Disturbances: 2-Mild Sensitivity Headache: 0-None Present CIWA-Ar Total Score: 16 BHS Progress Note (SOAP) Subjective: Tremors, Nausea, Anxious, Sweating. Objective: PATIENT A & O X 3, OBSERVED AMBULATING ON UNIT. IN NO ACUTE DISTRESS. 11/12/18 17:54 Vital Signs Temperature 97.0 F L 11/12/18 13:00 Pulse Rate 61 11/12/18 13:00 Respiratory Rate 18 11/12/18 13:00 Blood Pressure 143/78 11/12/18 13:00 O2 Sat by Pulse Oximetry (%) Laboratory Tests 11/12/18 11/12/18 11/12/18 07:00 07:00 07:00 WBC 5.1 RBC 4.01 Hgb 12.0 Hct 37.4 MCV 93.3 MCH 30.0 MCHC 32.2 RDW 13.4 Plt Count 143 MPV 8.9 D Sodium 139 Potassium 4.1 Chloride 104 Carbon Dioxide 29 Anion Gap 6 L BUN 19 H Creatinine 0.7 Creat Clearance w eGFR 89.69 Random Glucose 113 H Calcium 7.9 L Total Bilirubin 0.2 AST 16 ALT 18 Alkaline Phosphatase 113 Total Protein 7.2 Albumin 3.2 L RPR Titer Nonreactive LABS NOTED. Assessment: 11/12/18 17:55 WITHDRAWAL SYMPTOMS. HYPOCALCEMIA. Plan: CONTINUE DETOX. OSCAL, 500 MG PO BID FOR HYPOCALCEMIA.
[2018-11-12] MEDS: IBUPROFEN 400 MG TABLET (FP) PO PRN (18:10)
[2018-11-12] MEDS: MONTELUKAST NA 10 MG TABLET PO SCH (22:24)
[2018-11-12] MEDS: CALCIUM 500MG/VIT-D 200 UNITS COMBO TABLET (FP) PO SCH (22:25)
[2018-11-12] MEDS: THIAMINE HCL 100 MG TABLET (FP) PO SCH (22:25)
[2018-11-13] MEDS ORDERED: METHADONE HCL 10 MG TABLET ONE (04:21)
[2018-11-13] MEDS ORDERED: METHADONE HCL 40 MG DISPERSABLE TABLET ONE (04:22)
[2018-11-13] MEDS: CLINDAMYCIN HCL 150 MG CAPSULE (FP) PO SCH ×3 (06:17→23:26)
[2018-11-13] MEDS: METHADONE 120 MG, METHADONE 10 MG PO SCH (06:18)
[2018-11-13] MEDS: BUDESONIDE/FORMETEROL FUMARATE 80/4.5 mcg INHALER IH SCH ×2 (10:37→23:27)
[2018-11-13] MEDS: diazePAM 5 MG TABLET PO SCH ×2 (10:38→23:26)
[2018-11-13] MEDS: SILVER SULFADIAZINE 1% TOP CREAM 400 GM JAR TP SCH ×2 (10:38→23:28)
[2018-11-13] MEDS: LISINOPRIL 5 MG TABLET (FP) PO SCH (10:38)
[2018-11-13] MEDS: CALCIUM 500MG/VIT-D 200 UNITS COMBO TABLET (FP) PO SCH ×2 (10:38→23:28)
[2018-11-13] MEDS: NICOTINE 14 MG/24 HOURS TOPICAL PATCH TD SCH (10:38)
[2018-11-13] MEDS: PRENATAL VITAMINS W/ FOLIC ACID TABLET (FP) PO SCH (10:38)
[2018-11-13] MEDS: IBUPROFEN 400 MG TABLET (FP) PO PRN (12:52)
--- NOTE | 2018-11-13 16:34 | CONSULT ---
[facility] Psychiatric Consult - Data Date of interview: 11/13/18 Admission source: [facility] Identifying data: [place] [facility] [place] 47 y[place] self -referred for detoxification (benzodiazepines : xanax,clonazepam). Examined at [address] [place] [address]. Patient is single, a mother of five, homeless (resides in a selter), unemployed and supported on Public Assistance. Substance Abuse History: Confirmed by the patient in this interview. Details in current [facility] report as follows : Smoking history: Unknown if ever smoked. Have you smoked in the past 12 months: No. Aproximately how many cigarettes per day : 4. Cigars Per Day: 0. Hx Chewing Tobacco Use: No. Initiated information on smoking cessation: Yes. 'Breaking Loose' booklet given: 11/11/18. - Substance & Tx. History. Hx Alcohol Use: No. Hx Substance Use: Yes. Substance Use Type : Tranquilizers. Hx Substance Use Treatment: Yes ([facility] 05/28/17 to 06/01/17 detox,rehab 06/01/17 to 06/22/17). - Substances Abused. Alprazolam (Xanax) . Route: Oral. Frequency: Daily. Amount used: 10 mgs to 12 mgs. Age of first use: 17. Date of Last Use: 11/10/18 Medical History: Remarkable fo hepatitis C, varicose veins (both extremities), chronic nenous stasis ulcers, bronchial asthma and history of one section (2000). Psychiatric History: Patient denies history of psychiatric hospitalizations. One CPEP visit at [facility] (released after one day of observation). Ms Gatica sees a psychiatrist at the [facility] in the [place] (daily dose of methadone = 130 mg). Medicated with sertraline 100 mg/day. Diagnoses : MDD and Anxiety Disorder. Patient denies history of suicide attempts. Physical/Sexual Abuse/Trauma History: Stressors : homelessness, financial difficulties, addictions and removal of child from her custody by [facility]. Additional Comment: Urine Drug Screen Results: BZO-Benzodiazepines, MTD- Methadone. Noted. Mental Status Exam - Mental Status Exam Alert and Oriented to: Time, Place, Person Cognitive Function: Good Patient Appearance: Well Groomed (obese) Mood: Nervous, Apprehensive Affect: Mood Congruent, Constricted Patient Behavior: Fatigued, Appropriate, Cooperative Speech Pattern: Clear Voice Loudness: Normal Thought Process: Goal Oriented Thought Disorder: Not Present Hallucinations: Denies Suicidal Ideation: Denies Homicidal Ideation: Denies Insight/Judgement: Poor Sleep: Fair Appetite: Good Muscle strength/Tone: Normal Gait/Station: Normal Psychiatric Findings - Problem List ([place] 1, 2,3) (1) Sedative, hypnotic or anxiolytic dependence with withdrawal, uncomplicated Current Visit: Yes Status: Acute (2) Opioid dependence on agonist therapy Current Visit: Yes Status: Chronic (3) Nicotine dependence Current Visit: Yes Status: Chronic Qualifiers: Nicotine product type: cigarettes Substance use status: uncomplicated Qualified Code(s): F17.210 - Nicotine dependence, cigarettes, uncomplicated (4) Substance induced mood disorder Current Visit: Yes Status: Chronic (5) Depressive disorder Current Visit: Yes Status: Chronic (6) Non-compliant patient Current Visit: Yes Status: Chronic - Initial Treatment Plan Initial Treatment Plan: Psychoeducation. Support. Sleep hygiene. Detoxification in progress. NA meetings. Groups. Resume zoloft 100 mg po daily (patient's request). Side effects/benefits discussed with patient. Consent (verbal) given to Observation.
--- NOTE | 2018-11-13 17:40 | PN ---
S CIWA - CIWA Score Nausea/Vomitin-Mild Nausea/No Vomiting Muscle Tremors: 3 Anxiety: 3 Agitation: 2 Paroxysmal Sweats: 3 Orientation: 0-Oriented Tacttile Disturbances: 0-None Auditory Disturbances: 0-None Visual Disturbances: 0-None Headache: 0-None Present CIWA-Ar Total Score: 12 BHS Progress Note (SOAP) Subjective: sweats nausea tremors Objective: 11/13/18 17:39 A & ox 3 Anxious Stasis ulcers to both LE Vital Signs Temperature 97.3 F L 11/13/18 14:03 Pulse Rate 58 L 11/13/18 14:03 Respiratory Rate 18 11/13/18 14:03 Blood Pressure 115/76 11/13/18 14:03 O2 Sat by Pulse Oximetry (%) Assessment: 11/13/18 17:40 withdrawal sx Plan: continue detox Continue silverdene and dressing to b/l LE ulcers
[2018-11-13] MEDS: diazePAM 5 MG TABLET PO PRN (20:00)
[2018-11-13] MEDS: METHOCARBAMOL 500 MG TABLET PO PRN (20:02)
[2018-11-13] MEDS: MONTELUKAST NA 10 MG TABLET PO SCH (23:26)
[2018-11-13] MEDS: THIAMINE HCL 100 MG TABLET (FP) PO SCH (23:26)
[2018-11-14] MEDS ORDERED: METHADONE HCL 40 MG DISPERSABLE TABLET ONE (04:40)
[2018-11-14] MEDS ORDERED: METHADONE HCL 10 MG TABLET ONE (04:40)
[2018-11-14] MEDS ORDERED: diazePAM 5 MG TABLET PO SCH (06:00)
[2018-11-14] MEDS: METHADONE 120 MG, METHADONE 10 MG PO SCH (06:20)
[2018-11-14] MEDS: CLINDAMYCIN HCL 150 MG CAPSULE (FP) PO SCH ×3 (06:20→22:24)
[2018-11-14] MEDS: NICOTINE 14 MG/24 HOURS TOPICAL PATCH TD SCH (10:10)
[2018-11-14] MEDS: SILVER SULFADIAZINE 1% TOP CREAM 400 GM JAR TP SCH ×2 (10:10→22:25)
[2018-11-14] MEDS: PRENATAL VITAMINS W/ FOLIC ACID TABLET (FP) PO SCH (10:33)
[2018-11-14] MEDS: CALCIUM 500MG/VIT-D 200 UNITS COMBO TABLET (FP) PO SCH ×2 (10:33→22:24)
[2018-11-14] MEDS: LISINOPRIL 5 MG TABLET (FP) PO SCH (10:33)
[2018-11-14] MEDS: SERTRALINE HCL 50 MG TABLET (FP) PO SCH (10:33)
[2018-11-14] MEDS: BUDESONIDE/FORMETEROL FUMARATE 80/4.5 mcg INHALER IH SCH ×2 (10:34→22:24)
[2018-11-14] MEDS: diazePAM 5 MG TABLET PO PRN (10:35)
--- NOTE | 2018-11-14 14:30 | DS ---
[facility] Detox Discharge Summary Admission Date: 11/11/18 Discharge Date: 11/14/18 - History Present History: Sedative Dependence Additional Comments: 47 years old female admitted on 11/11/18 for benzo withdrawal stabilization refuses to leave the detox unit - Physical Exam Results Vital Signs: Vital Signs Temperature 97.6 F 11/14/18 13:11 Pulse Rate 63 11/14/18 13:11 Respiratory Rate 18 11/14/18 13:11 Blood Pressure 137/85 11/14/18 13:11 O2 Sat by Pulse Oximetry (%) - Treatment Hospital Course: Detox Protocol Followed, Detoxed Safely, Responded well, Discharged Condition Good, Rehab Referral Accepted - Medication Discharge Medications: Ambulatory Orders Atomoxetine HCl [Strattera -] 40 mg PO DAILY 11/11/18 Hydroxyzine Pamoate 50 mg PO HS PRN 11/11/18 Ibuprofen [Ibu] 800 mg PO TID PRN 11/11/18 Mupirocin 22 gm TP TID 11/11/18 Sertraline HCl [Zoloft] 100 mg PO DAILY 11/11/18 Budesonide/Formeterol Fumarate [SYMBICORT 80/4.5mcg -] 1 inh PO BID #1 inhaler 11/14/18 Clindamycin [Cleocin -] 300 mg PO TID #21 capsule 11/14/18 Lisinopril 5 mg PO DAILY #14 tablet 11/14/18 Montelukast Na [Singulair -] 10 mg PO HS #14 tablet 11/14/18 - Diagnosis (1) Sedative, hypnotic or anxiolytic dependence with withdrawal, uncomplicated Current Visit: Yes Status: Acute (2) Nicotine dependence Current Visit: Yes Status: Acute Qualifiers: Nicotine product type: cigarettes Substance use status: in withdrawal Qualified Code(s): F17.213 - Nicotine dependence, cigarettes, with withdrawal (3) Substance induced mood disorder Current Visit: Yes Status: Suspected (4) Asthma Current Visit: Yes Status: Chronic Qualifiers: Asthma severity: mild Asthma persistence: intermittent Asthma complication type: with status asthmaticus Qualified Code(s): J45.22 - Mild intermittent asthma with status asthmaticus (5) Hepatitis C carrier Current Visit: Yes Status: Chronic (6) Methadone maintenance therapy patient Current Visit: Yes Status: Chronic - AMA Did Patient Leave Against Medical Advice: No
--- NOTE | 2018-11-14 14:35 | PN ---
[facility] CIWA - CIWA Score Nausea/Vomitin-No Nausea/No Vomiting Muscle Tremors: 1-None Visible, but [place] Anxiety: 2 Agitation: 2 Paroxysmal Sweats: No Perspiration Orientation: 0-Oriented Tacttile Disturbances: 0-None Auditory Disturbances: 0-None Visual Disturbances: 0-None Headache: 2-Mild CIWA-Ar Total Score: 7 S Progress Note (SOAP) Subjective: patient does not want to leave the detox unit does not want to go to [facility] encourage the patient return to methadone program for medical and mental issues Objective: 11/14/18 14:32 Vital Signs Temperature 97.6 F 11/14/18 13:11 Pulse Rate 63 11/14/18 13:11 Respiratory Rate 18 11/14/18 13:11 Blood Pressure 137/85 11/14/18 13:11 O2 Sat by Pulse Oximetry (%) Laboratory Last Values WBC 5.1 K/mm3 (4.0-10.0) 11/12/18 07:00 RBC 4.01 M/mm3 (3.60-5.2) 11/12/18 07:00 Hgb 12.0 GM/dL (10.7-15.3) 11/12/18 07:00 Hct 37.4 % (32.4-45.2) 11/12/18 07:00 MCV 93.3 fl (80-96) 11/12/18 07:00 MCH 30.0 pg (25.7-33.7) 11/12/18 07:00 MCHC 32.2 g/dl (32.0-36.0) 11/12/18 07:00 RDW 13.4 % (11.6-15.6) 11/12/18 07:00 Plt Count 143 K/MM3 (134-434) 11/12/18 07:00 MPV 8.9 fl (7.5-11.1) D 11/12/18 07:00 Sodium 139 mmol/L (136-145) 11/12/18 07:00 Potassium 4.1 mmol/L (3.5-5.1) 11/12/18 07:00 Chloride 104 mmol/L (98-107) 11/12/18 07:00 Carbon Dioxide 29 mmol/L (21-32) 11/12/18 07:00 Anion Gap 6 MMOL/L (8-16) L 11/12/18 07:00 BUN 19 mg/dL (7-18) H 11/12/18 07:00 Creatinine 0.7 mg/dL (0.55-1.3) 11/12/18 07:00 Creat Clearance w eGFR 89.69 (>60) 11/12/18 07:00 Random Glucose 113 mg/dL (74-106) H 11/12/18 07:00 Calcium 7.9 mg/dL (8.5-10.1) L 11/12/18 07:00 Total Bilirubin 0.2 mg/dL (0.2-1) 11/12/18 07:00 AST 16 U/L (15-37) 11/12/18 07:00 ALT 18 U/L (13-61) 11/12/18 07:00 Alkaline Phosphatase 113 U/L (45-117) 11/12/18 07:00 Total Protein 7.2 g/dl (6.4-8.2) 11/12/18 07:00 Albumin 3.2 g/dl (3.4-5.0) L 11/12/18 07:00 RPR Titer Nonreactive (NONREACTIVE) 11/12/18 07:00 lab noted encourage trini clum rich food Assessment: 11/14/18 14:34 mild withdrawal sx Plan: continue detox in respect patient's needs and sensitive to discharge matter encourage the patient return to methadone program
[2018-11-14] MEDS: IBUPROFEN 400 MG TABLET (FP) PO PRN (15:29)
[2018-11-14] MEDS: MONTELUKAST NA 10 MG TABLET PO SCH (22:24)
[2018-11-14] MEDS: METHOCARBAMOL 500 MG TABLET PO PRN (22:24)
[2018-11-14] MEDS: THIAMINE HCL 100 MG TABLET (FP) PO SCH (22:24)
[2018-11-15] MEDS ORDERED: METHADONE HCL 10 MG TABLET ONE (04:10)
[2018-11-15] MEDS ORDERED: METHADONE HCL 40 MG DISPERSABLE TABLET ONE (04:10)
[2018-11-15] MEDS: CLINDAMYCIN HCL 150 MG CAPSULE (FP) PO SCH (05:42)
[2018-11-15] MEDS: METHADONE 120 MG, METHADONE 10 MG PO SCH (05:42)
[2018-11-15 09:16] VITALS: BP 136/84; PULSE 67; TEMP 97.7
[2018-11-15] MEDS: LISINOPRIL 5 MG TABLET (FP) PO SCH (10:17)
[2018-11-15] MEDS: CALCIUM 500MG/VIT-D 200 UNITS COMBO TABLET (FP) PO SCH (10:17)
[2018-11-15] MEDS: SERTRALINE HCL 50 MG TABLET (FP) PO SCH (10:17)
[2018-11-15] MEDS: BUDESONIDE/FORMETEROL FUMARATE 80/4.5 mcg INHALER IH SCH (10:17)
[2018-11-15] MEDS: NICOTINE 14 MG/24 HOURS TOPICAL PATCH TD SCH (10:17)
[2018-11-15] MEDS: PRENATAL VITAMINS W/ FOLIC ACID TABLET (FP) PO SCH (10:17)
[2018-11-15] MEDS: METHOCARBAMOL 500 MG TABLET PO PRN (10:19)
[2018-11-15] MEDS: SILVER SULFADIAZINE 1% TOP CREAM 400 GM JAR TP SCH (10:48)
--- NOTE | 2018-11-15 11:21 | EKG ---
Test Reason : Blood Pressure : / mmHG Vent. Rate : 050 BPM Atrial Rate : 050 BPM P-R Int : 158 ms QRS Dur : 094 ms QT Int : 484 ms P-R-T Axes : 053 050 052 degrees QTc Int : 441 ms SINUS BRADYCARDIA OTHERWISE NORMAL ECG WHEN COMPARED WITH ECG OF 29-MAY-2017 07:58, NO SIGNIFICANT CHANGE WAS FOUND Confirmed by KELVIN CONTRERAS MD ([id number]) on 11/15/2018 11:21:32 AM Referred By: Confirmed By:KELVIN CONTRERAS MD
--- NOTE | 2018-11-15 12:12 | DS ---
[facility] Detox Discharge Summary Admission Date: 11/11/18 Discharge Date: 11/15/18 - History Present History: Opioid Dependence, Sedative Dependence, MMTP Additional Comments: PATIENT GOING TO [facility] FOR AFTERCARE. VENOUS STASIS ULCERS OF BILATERAL LOWER LEGS NOTED PRIOR TO PATIENT'S DISCHARGE FROM DETOX UNIT. WOUNDS APPEAR TO BE HEALING WELL AT THIS TIME. WILL CONTINUE WOUND CARE PREVIOUSLY DIRECTED ON DETOX UNIT (TOPICAL SILVADENE, PO CLINDAMYCIN), THEN HAVE WOUNDS RE- EVALUATED IN FOUR DAYS. PATIENT WAS DISCHARGED FROM DETOX UNIT TO BE TAKEN OVER TO REHAB UNIT IN STABLE MEDICAL CONDITION. Pertinent Past History: Asthma, Hep C, Depressive Disorder, Anxiety, M.M.T.P., Varicose Vein of Legs, Venous Stasis Ulcers of Bilateral Lower Legs, Bilateral Lower Leg Cellulitis, Nicotine Dependence. - Physical Exam Results Vital Signs: Vital Signs Temperature 97.7 F 11/15/18 09:15 Pulse Rate 67 11/15/18 09:15 Respiratory Rate 18 11/15/18 09:15 Blood Pressure 136/84 11/15/18 09:15 O2 Sat by Pulse Oximetry (%) Pertinent Admission Physical Exam Findings: WITHDRAWAL SYMPTOMS. Laboratory Tests 11/12/18 11/12/18 11/12/18 07:00 07:00 07:00 WBC 5.1 RBC 4.01 Hgb 12.0 Hct 37.4 MCV 93.3 MCH 30.0 MCHC 32.2 RDW 13.4 Plt Count 143 MPV 8.9 D Sodium 139 Potassium 4.1 Chloride 104 Carbon Dioxide 29 Anion Gap 6 L BUN 19 H Creatinine 0.7 Creat Clearance w eGFR 89.69 Random Glucose 113 H Calcium 7.9 L Total Bilirubin 0.2 AST 16 ALT 18 Alkaline Phosphatase 113 Total Protein 7.2 Albumin 3.2 L RPR Titer Nonreactive LABS NOTED. - Treatment Hospital Course: Detox Protocol Followed, Detoxed Safely, Responded well, Discharged Condition Good, Rehab Referral Accepted Patient has Accepted a Rehab Referral to: [facility] ([place], [place]). - Medication Discharge Medications: Ambulatory Orders Atomoxetine HCl [Strattera -] 40 mg PO DAILY 11/11/18 Hydroxyzine Pamoate 50 mg PO HS PRN 11/11/18 Ibuprofen [Ibu] 800 mg PO TID PRN 11/11/18 Mupirocin 22 gm TP TID 11/11/18 Sertraline HCl [Zoloft] 100 mg PO DAILY 11/11/18 Budesonide/Formeterol Fumarate [SYMBICORT 80/4.5mcg -] 1 inh PO BID #1 inhaler 11/14/18 Clindamycin [Cleocin -] 300 mg PO TID #21 capsule 11/14/18 Lisinopril 5 mg PO DAILY #14 tablet 11/14/18 Montelukast Na [Singulair -] 10 mg PO HS #14 tablet 11/14/18 - Diagnosis (1) Bilateral lower leg cellulitis Status: Acute (2) Nicotine dependence Status: Acute Qualifiers: Nicotine product type: cigarettes Substance use status: in withdrawal Qualified Code(s): F17.213 - Nicotine dependence, cigarettes, with withdrawal (3) Sedative, hypnotic or anxiolytic dependence with withdrawal, uncomplicated Status: Acute (4) Venous stasis of both lower extremities Status: Acute (5) Asthma Status: Chronic Qualifiers: Asthma severity: mild Asthma persistence: intermittent Asthma complication type: with status asthmaticus Qualified Code(s): J45.22 - Mild intermittent asthma with status asthmaticus (6) Depressive disorder Status: Chronic (7) Non-compliant patient Status: Chronic (8) Opioid dependence on agonist therapy Status: Chronic (9) Varicose vein of leg Status: Chronic Qualifiers: Varicose vein complication: unspecified Laterality: bilateral Qualified Code(s): I83.93 - Asymptomatic varicose veins of bilateral lower extremities (10) Substance induced mood disorder Status: Suspected - AMA Did Patient Leave Against Medical Advice: No
== END 2018-11-15 11:55 | disposition other institution (70) | DRG 773 ==
LOC: YASAS 10:39 → Y3N 14:50
PROVIDERS: ADMIT Surgery; ATTEND Surgery
PROC: HZ2ZZZZ Detoxification Services for Substance Abuse Treatment (ICD-10-PCS; principal; 2018-11-11)
DX: F13.230 Sedative, hypnotic or anxiolytic dependence with withdrawal, uncomplicated (principal); F11.20 Opioid dependence, uncomplicated; F17.213 Nicotine dependence, cigarettes, with withdrawal; F19.24 Other psychoactive substance dependence with psychoactive substance-induced mood disorder; F32.9 Major depressive disorder, single episode, unspecified; J45.22 Mild intermittent asthma with status asthmaticus; I87.2 Venous insufficiency (chronic) (peripheral); L97.902 Non-pressure chronic ulcer of unspecified part of unspecified lower leg with fat layer exposed; I83.93 Asymptomatic varicose veins of bilateral lower extremities; L03.116 Cellulitis of left lower limb; L03.115 Cellulitis of right lower limb; B18.2 Chronic viral hepatitis C; E83.51 Hypocalcemia; Z91.19 Patient's noncompliance with other medical treatment and regimen
CPT/HCPCS: 36415; 71046-TC-FY; 80053; 81003; 83880; 84703; 85025; 85027; 86593; 87040; 87086; 93005; 93010; 93971-TC; 99283-25

== ENCOUNTER 2018-11-15 11:35 | Inpatient (IN) | payer OTHER ==
[2018-11-15] MEDS ORDERED: MAGNESIUM HYDROX 2400MG/30ML ORAL SUSPENSION 30 ML CUP PO PRN (13:16)
[2018-11-15] MEDS ORDERED: MAGNESIUM CITRATE 300 ML BOTTLE PO PRN (13:16)
[2018-11-15] MEDS ORDERED: MAG HYDROX/AL HYDROX/SIMETH 30 ML UNIT-DOSE CUP PO PRN (13:16)
[2018-11-15] MEDS ORDERED: guaiFENesin 200 MG/10 ML 10 ML UNIT-DOSE CUPS PO PRN (13:16)
[2018-11-15] MEDS ORDERED: LOPERAMIDE HCL 2 MG CAPSULE PO PRN (13:16)
[2018-11-15] MEDS ORDERED: P-EPHED 60MG/TRIPROLIDI 2.5MG TABLET PO PRN (13:16)
[2018-11-15] MEDS ORDERED: MENTHOL/PHENOL 1 EACH UD MM PRN (13:16)
--- NOTE | 2018-11-15 13:45 | HP ---
[facility] Rehab Assess/Revision - Admission History Admitted to Rehab from: [facility] Date of Admission to Rehab: 11/15/2018 - Vital signs Vital Signs: Vital Signs Period Temp Pulse Resp BP Sys/Maher Pulse Ox Last 24 Hr 97.7 F 67 18 116/76 - Findings Detox History & Physical reviewed: Yes Concur with findings: Yes Comments/Additional Findings: PATIENT'S MEDICAL / MEDICATION HISTORY REVIEWED PRIOR TO DISCHARGE FROM DETOX UNIT. VENOUS STASIS ULCERS OF BILATERAL LOWER LEGS (ONE ON EACH LEG) NOTED PRIOR TO PATIENT'S DISCHARGE FROM DETOX UNIT. WOUNDS APPEAR TO BE HEALING WELL AT THIS TIME. WILL CONTINUE WOUND CARE PREVIOUSLY DIRECTED ON DETOX UNIT (TOPICAL SILVADENE, PO CLINDAMYCIN), THEN HAVE WOUNDS RE-EVALUATED IN FOUR DAYS. PATIENT WAS DISCHARGED FROM DETOX UNIT TO BE TAKEN OVER TO REHAB UNIT IN STABLE MEDICAL CONDITION. Inpatient Rehab Admission - Rehab Decision to Admit Inpatient rehab admission?: Yes - Initial Determination Are CD services needed?: Yes Free of communicable disease: Yes Not in need of hospitalization: Yes - Rehab Admission Criteria Previous failed treatment: Yes Poor recovery environment: Yes Comorbidities: Yes Lacks judgement: No Patient is meeting Inpatient Rehab admission criteria:: Yes
[2018-11-15] MEDS: ACETAMINOPHEN 325 MG TABLET (FP) PO PRN ×2 (14:32→21:24)
[2018-11-15] MEDS: CLINDAMYCIN HCL 150 MG CAPSULE (FP) PO SCH ×2 (16:10→21:45)
[2018-11-15] MEDS: SILVER SULFADIAZINE 1% TOP CREAM 50 GM JAR TP SCH (21:21)
[2018-11-15] MEDS: THIAMINE HCL 100 MG TABLET (FP) PO SCH (21:21)
[2018-11-15] MEDS: MONTELUKAST NA 10 MG TABLET PO SCH (21:23)
[2018-11-15] MEDS: MELATONIN 5 MG TABLETS PO PRN (21:25)
[2018-11-15] MEDS: BUDESONIDE/FORMETEROL FUMARATE 80/4.5 mcg INHALER IH SCH (21:25)
[2018-11-16] MEDS ORDERED: METHADONE HCL 10 MG TABLET PO SCH (06:00)
[2018-11-16] MEDS ORDERED: METHADONE HCL 40 MG DISPERSABLE TABLET ONE (06:09)
[2018-11-16] MEDS ORDERED: METHADONE HCL 10 MG TABLET ONE (06:09)
[2018-11-16] MEDS: METHADONE 120 MG, METHADONE 10 MG PO SCH (06:35)
[2018-11-16] MEDS: CLINDAMYCIN HCL 150 MG CAPSULE (FP) PO SCH ×3 (06:36→21:49)
[2018-11-16] MEDS: ACETAMINOPHEN 325 MG TABLET (FP) PO PRN ×3 (06:38→18:07)
[2018-11-16] MEDS ORDERED: hydrOXYzine PAMOATE 50 MG CAPSULE (FP) PO PRN (08:55)
[2018-11-16] MEDS: LISINOPRIL 5 MG TABLET (FP) PO SCH (10:11)
[2018-11-16] MEDS: NICOTINE 14 MG/24 HOURS TOPICAL PATCH TD SCH (10:11)
[2018-11-16] MEDS: PRENATAL VITAMINS W/ FOLIC ACID TABLET (FP) PO SCH (10:11)
[2018-11-16] MEDS: SERTRALINE HCL 50 MG TABLET (FP) PO SCH (10:12)
[2018-11-16] MEDS: SILVER SULFADIAZINE 1% TOP CREAM 50 GM JAR TP SCH ×2 (10:12→21:49)
[2018-11-16] MEDS: BUDESONIDE/FORMETEROL FUMARATE 80/4.5 mcg INHALER IH SCH ×2 (10:12→21:49)
--- NOTE | 2018-11-16 11:46 | CONSULT ---
[facility] Psychiatric Consult - Data Date of interview: 11/16/18 Admission source: [facility] Identifying data: Patient is a 47 year old single female, mother of five, residing in a detention, and is not receiving financial assistance. This is one of multiple admissions for patient. Patient admitted to for benzodiazepine dependence. Substance Abuse History: Smoking Cessation. Smoking history: Unknown if ever smoked. Have you smoked in the past 12 months: No. Aproximately how many cigarettes per day: 4. Cigars Per Day: 0. Hx Chewing Tobacco Use: No. Initiated information on smoking cessation: Yes. 'Breaking Loose' booklet given : 11/11/18. - Substance & Tx. History. Hx Alcohol Use: No. Hx Substance Use: Yes. Substance Use Type: Tranquilizers. Hx Substance Use Treatment: Yes ([facility] 05/28/17 to 06/01/17 detox,rehab 06/01/17 to 06/22/17). - Substances Abused. * * Alprazolam (Xanax). Route: Oral. Frequency: Daily. Amount used: 10 mgs to 12 mgs. Age of first use: 17. Date of Last Use: 11/10/18 Medical History: Remarkable fo hepatitis C, varicose veins (both extremities), chronic nenous stasis ulcers, bronchial asthma and history of one section (2000). Psychiatric History: Patient's first psychiatric contact was at 17 years old of age to address her anxiety and depression. She saw the psychiatrist for approximately two months and was prescribed psychiatrist kumar. She reports h /o outpatient psychiatric treatment throghout her adult years in [place], [place] and [place]. She denies h/o psychiatric hospitalization but states she was observed once in the [facility] in 2010 at [facility] after feeling depressed secondary to her history of substance abuse. She reports past history of accepting paxil. Currently, Mr. Gatica is provided with outpatient psychiatric care and methadone maintenance (130mg) at the [facility] clinic. Patient is prescribed zoloft 100mg + gabapentin 300mg TID + Vistaril 50mg HS + Straterra (noncompliant). Ms. Flores denies h/o suicide attempt. At present she reports stable mood but reports intermittent anxiety thoroughout the day. Physical/Sexual Abuse/Trauma History: Stressors : homelessness, financial difficulties, addictions and removal of child from her custody by [employer]. Mental Status Exam - Mental Status Exam Alert and Oriented to: Time, Place, Person Cognitive Function: Good Patient Appearance: Well Groomed Mood: Anxious Affect: Appropriate Patient Behavior: Appropriate, Cooperative Speech Pattern: Clear, Appropriate Voice Loudness: Normal Thought Process: Intact, Goal Oriented Thought Disorder: Not Present Hallucinations: Denies Suicidal Ideation: Denies Homicidal Ideation: Denies Insight/Judgement: Poor Sleep: Fair Appetite: Fair Muscle strength/Tone: Normal Gait/Station: Normal Psychiatric Findings - Problem List ([place] 1, 2,3) (1) Sedative hypnotic or anxiolytic dependence Current Visit: Yes Status: Acute (2) Nicotine dependence Current Visit: Yes Status: Chronic Qualifiers: Nicotine product type: cigarettes Substance use status: in withdrawal Qualified Code(s): F17.213 - Nicotine dependence, cigarettes, with withdrawal (3) Opioid dependence on agonist therapy Current Visit: Yes Status: Chronic (4) Substance-induced anxiety disorder Current Visit: Yes Status: Acute - Initial Treatment Plan Initial Treatment Plan: Psychoeducation provided. Rehab in progress. Will order gabapentin 300mg TID. Zoloft 100mg ordered by Dr. Espitia while in detox. Benefits and side effects discussed. Verbal consent given.
[2018-11-16] MEDS ORDERED: PT OWN MED DRAWER 7, Y5N ONE ×2 (13:37→20:23)
[2018-11-16] MEDS: GABAPENTIN 300 MG CAPSULE (FP) PO SCH ×2 (14:03→21:49)
[2018-11-16] MEDS: hydrOXYzine PAMOATE 50 MG CAPSULE (FP) PO PRN (14:05)
[2018-11-16] MEDS: MELATONIN 5 MG TABLETS PO PRN (21:49)
[2018-11-16] MEDS: MONTELUKAST NA 10 MG TABLET PO SCH (21:49)
[2018-11-16] MEDS: THIAMINE HCL 100 MG TABLET (FP) PO SCH (21:49)
[2018-11-17] MEDS ORDERED: METHADONE HCL 40 MG DISPERSABLE TABLET ONE (03:14)
[2018-11-17] MEDS ORDERED: METHADONE HCL 10 MG TABLET ONE (03:14)
[2018-11-17] MEDS: METHADONE 120 MG, METHADONE 10 MG PO SCH (06:28)
[2018-11-17] MEDS: CLINDAMYCIN HCL 150 MG CAPSULE (FP) PO SCH ×3 (06:29→21:59)
[2018-11-17] MEDS: ACETAMINOPHEN 325 MG TABLET (FP) PO PRN ×4 (06:30→22:00)
[2018-11-17] MEDS: GABAPENTIN 300 MG CAPSULE (FP) PO SCH ×3 (06:30→22:02)
[2018-11-17] MEDS: NICOTINE 14 MG/24 HOURS TOPICAL PATCH TD SCH (10:20)
[2018-11-17] MEDS: SERTRALINE HCL 50 MG TABLET (FP) PO SCH (10:21)
[2018-11-17] MEDS: PRENATAL VITAMINS W/ FOLIC ACID TABLET (FP) PO SCH (10:21)
[2018-11-17] MEDS: LISINOPRIL 5 MG TABLET (FP) PO SCH (10:21)
[2018-11-17] MEDS: SILVER SULFADIAZINE 1% TOP CREAM 50 GM JAR TP SCH ×2 (10:22→22:01)
[2018-11-17] MEDS: BUDESONIDE/FORMETEROL FUMARATE 80/4.5 mcg INHALER IH SCH ×2 (10:22→22:01)
[2018-11-17] MEDS: hydrOXYzine PAMOATE 50 MG CAPSULE (FP) PO PRN ×2 (10:26→21:59)
[2018-11-17] MEDS ORDERED: PT OWN MED DRAWER 7, Y5N ONE (13:33)
[2018-11-17] MEDS: MONTELUKAST NA 10 MG TABLET PO SCH (21:59)
[2018-11-17] MEDS: THIAMINE HCL 100 MG TABLET (FP) PO SCH (21:59)
[2018-11-18] MEDS ORDERED: METHADONE HCL 10 MG TABLET ONE (03:27)
[2018-11-18] MEDS ORDERED: METHADONE HCL 40 MG DISPERSABLE TABLET ONE (03:27)
[2018-11-18] MEDS: ACETAMINOPHEN 325 MG TABLET (FP) PO PRN ×4 (06:34→22:37)
[2018-11-18] MEDS: GABAPENTIN 300 MG CAPSULE (FP) PO SCH ×3 (06:34→21:13)
[2018-11-18] MEDS: CLINDAMYCIN HCL 150 MG CAPSULE (FP) PO SCH ×3 (06:34→21:14)
[2018-11-18] MEDS: METHADONE 120 MG, METHADONE 10 MG PO SCH (06:35)
[2018-11-18] MEDS ORDERED: PT OWN MED DRAWER 7, Y5N ONE ×2 (09:00→12:19)
[2018-11-18] MEDS: PRENATAL VITAMINS W/ FOLIC ACID TABLET (FP) PO SCH (10:16)
[2018-11-18] MEDS: SERTRALINE HCL 50 MG TABLET (FP) PO SCH (10:16)
[2018-11-18] MEDS: BUDESONIDE/FORMETEROL FUMARATE 80/4.5 mcg INHALER IH SCH ×2 (10:16→21:15)
[2018-11-18] MEDS: LISINOPRIL 5 MG TABLET (FP) PO SCH (10:16)
[2018-11-18] MEDS: NICOTINE 14 MG/24 HOURS TOPICAL PATCH TD SCH (10:17)
[2018-11-18] MEDS: SILVER SULFADIAZINE 1% TOP CREAM 50 GM JAR TP SCH ×3 (10:19→22:38)
[2018-11-18] MEDS: THIAMINE HCL 100 MG TABLET (FP) PO SCH (21:13)
[2018-11-18] MEDS: hydrOXYzine PAMOATE 50 MG CAPSULE (FP) PO PRN (21:13)
[2018-11-18] MEDS: MONTELUKAST NA 10 MG TABLET PO SCH (21:14)
[2018-11-18] MEDS: MELATONIN 5 MG TABLETS PO PRN (21:15)
[2018-11-19] MEDS ORDERED: METHADONE HCL 10 MG TABLET ONE (06:03)
[2018-11-19] MEDS ORDERED: METHADONE HCL 40 MG DISPERSABLE TABLET ONE (06:03)
[2018-11-19] MEDS ORDERED: PT OWN MED DRAWER 7, Y5N ONE (06:04)
[2018-11-19] MEDS: CLINDAMYCIN HCL 150 MG CAPSULE (FP) PO SCH ×3 (06:43→21:59)
[2018-11-19] MEDS: METHADONE 120 MG, METHADONE 10 MG PO SCH (06:43)
[2018-11-19] MEDS: GABAPENTIN 300 MG CAPSULE (FP) PO SCH ×3 (06:43→22:02)
[2018-11-19] MEDS: NICOTINE 14 MG/24 HOURS TOPICAL PATCH TD SCH (10:11)
[2018-11-19] MEDS: BUDESONIDE/FORMETEROL FUMARATE 80/4.5 mcg INHALER IH SCH ×2 (10:11→22:02)
[2018-11-19] MEDS: PRENATAL VITAMINS W/ FOLIC ACID TABLET (FP) PO SCH (10:11)
[2018-11-19] MEDS: SERTRALINE HCL 50 MG TABLET (FP) PO SCH (10:11)
[2018-11-19] MEDS: SILVER SULFADIAZINE 1% TOP CREAM 50 GM JAR TP SCH ×2 (10:11→22:02)
[2018-11-19] MEDS: LISINOPRIL 5 MG TABLET (FP) PO SCH (10:11)
[2018-11-19] MEDS: ACETAMINOPHEN 325 MG TABLET (FP) PO PRN ×2 (10:12→14:17)
[2018-11-19] MEDS ORDERED: ALBUTEROL SO4 8 GM HFA INHALER IH PRN (10:50)
[2018-11-19] MEDS: THIAMINE HCL 100 MG TABLET (FP) PO SCH (21:58)
[2018-11-19] MEDS: hydrOXYzine PAMOATE 50 MG CAPSULE (FP) PO PRN (21:59)
[2018-11-19] MEDS: MONTELUKAST NA 10 MG TABLET PO SCH (21:59)
[2018-11-19] MEDS: IBUPROFEN 400 MG TABLET (FP) PO PRN (21:59)
[2018-11-19] MEDS: MELATONIN 5 MG TABLETS PO PRN (22:01)
[2018-11-20] MEDS ORDERED: METHADONE HCL 40 MG DISPERSABLE TABLET ONE (03:32)
[2018-11-20] MEDS ORDERED: METHADONE HCL 10 MG TABLET ONE (03:32)
[2018-11-20] MEDS: METHADONE 120 MG, METHADONE 10 MG PO SCH (06:21)
[2018-11-20] MEDS: IBUPROFEN 400 MG TABLET (FP) PO PRN ×3 (06:22→21:26)
[2018-11-20] MEDS: CLINDAMYCIN HCL 150 MG CAPSULE (FP) PO SCH (06:22)
[2018-11-20] MEDS: GABAPENTIN 300 MG CAPSULE (FP) PO SCH ×3 (06:22→21:25)
[2018-11-20] MEDS ORDERED: PT OWN MED DRAWER 7, Y5N ONE (08:42)
[2018-11-20] MEDS: NICOTINE 14 MG/24 HOURS TOPICAL PATCH TD SCH (10:00)
[2018-11-20] MEDS: SILVER SULFADIAZINE 1% TOP CREAM 50 GM JAR TP SCH ×2 (10:00→21:26)
[2018-11-20] MEDS: PRENATAL VITAMINS W/ FOLIC ACID TABLET (FP) PO SCH (10:00)
[2018-11-20] MEDS: SERTRALINE HCL 50 MG TABLET (FP) PO SCH (10:00)
[2018-11-20] MEDS: LISINOPRIL 5 MG TABLET (FP) PO SCH (10:01)
[2018-11-20] MEDS: BUDESONIDE/FORMETEROL FUMARATE 80/4.5 mcg INHALER IH SCH ×2 (10:01→21:49)
[2018-11-20] MEDS: MONTELUKAST NA 10 MG TABLET PO SCH (21:25)
[2018-11-20] MEDS: THIAMINE HCL 100 MG TABLET (FP) PO SCH (21:25)
[2018-11-20] MEDS: MELATONIN 5 MG TABLETS PO PRN (21:26)
[2018-11-20] MEDS: hydrOXYzine PAMOATE 50 MG CAPSULE (FP) PO PRN (21:28)
[2018-11-21] MEDS ORDERED: METHADONE HCL 10 MG TABLET ONE (03:29)
[2018-11-21] MEDS ORDERED: METHADONE HCL 40 MG DISPERSABLE TABLET ONE (03:29)
[2018-11-21] MEDS: METHADONE 120 MG, METHADONE 10 MG PO SCH (06:34)
[2018-11-21] MEDS: IBUPROFEN 400 MG TABLET (FP) PO PRN ×3 (06:35→21:11)
[2018-11-21] MEDS: GABAPENTIN 300 MG CAPSULE (FP) PO SCH ×3 (06:35→21:10)
[2018-11-21] MEDS: BUDESONIDE/FORMETEROL FUMARATE 80/4.5 mcg INHALER IH SCH ×2 (09:25→21:09)
[2018-11-21] MEDS: NICOTINE 14 MG/24 HOURS TOPICAL PATCH TD SCH (09:25)
[2018-11-21] MEDS: LISINOPRIL 5 MG TABLET (FP) PO SCH (09:26)
[2018-11-21] MEDS: SERTRALINE HCL 50 MG TABLET (FP) PO SCH (09:26)
[2018-11-21] MEDS: PRENATAL VITAMINS W/ FOLIC ACID TABLET (FP) PO SCH (09:26)
[2018-11-21] MEDS: SILVER SULFADIAZINE 1% TOP CREAM 50 GM JAR TP SCH ×2 (09:27→21:11)
[2018-11-21] MEDS ORDERED: PT OWN MED DRAWER 7, Y5N ONE (19:38)
[2018-11-21] MEDS: hydrOXYzine PAMOATE 50 MG CAPSULE (FP) PO PRN (21:10)
[2018-11-21] MEDS: THIAMINE HCL 100 MG TABLET (FP) PO SCH (21:10)
[2018-11-21] MEDS: MONTELUKAST NA 10 MG TABLET PO SCH (21:10)
[2018-11-22] MEDS ORDERED: METHADONE HCL 40 MG DISPERSABLE TABLET ONE (06:00)
[2018-11-22] MEDS ORDERED: METHADONE HCL 10 MG TABLET ONE (06:00)
[2018-11-22] MEDS: METHADONE 120 MG, METHADONE 10 MG PO SCH (06:39)
[2018-11-22] MEDS: IBUPROFEN 400 MG TABLET (FP) PO PRN ×2 (06:40→21:19)
[2018-11-22] MEDS: GABAPENTIN 300 MG CAPSULE (FP) PO SCH ×3 (06:40→21:16)
[2018-11-22] MEDS: BUDESONIDE/FORMETEROL FUMARATE 80/4.5 mcg INHALER IH SCH ×2 (10:12→21:17)
[2018-11-22] MEDS: LISINOPRIL 5 MG TABLET (FP) PO SCH (10:12)
[2018-11-22] MEDS: SILVER SULFADIAZINE 1% TOP CREAM 50 GM JAR TP SCH ×2 (10:12→21:17)
[2018-11-22] MEDS: PRENATAL VITAMINS W/ FOLIC ACID TABLET (FP) PO SCH (10:12)
[2018-11-22] MEDS: NICOTINE 14 MG/24 HOURS TOPICAL PATCH TD SCH (10:13)
[2018-11-22] MEDS: SERTRALINE HCL 50 MG TABLET (FP) PO SCH (10:13)
[2018-11-22] MEDS: hydrOXYzine PAMOATE 50 MG CAPSULE (FP) PO PRN ×2 (10:15→21:16)
[2018-11-22] MEDS: ACETAMINOPHEN 325 MG TABLET (FP) PO PRN (13:52)
[2018-11-22] MEDS: MONTELUKAST NA 10 MG TABLET PO SCH (21:16)
[2018-11-22] MEDS: MELATONIN 5 MG TABLETS PO PRN (21:16)
[2018-11-22] MEDS: THIAMINE HCL 100 MG TABLET (FP) PO SCH (21:16)
[2018-11-23] MEDS ORDERED: METHADONE HCL 10 MG TABLET ONE (05:52)
[2018-11-23] MEDS ORDERED: METHADONE HCL 40 MG DISPERSABLE TABLET ONE (05:52)
[2018-11-23] MEDS: GABAPENTIN 300 MG CAPSULE (FP) PO SCH ×3 (06:39→21:01)
[2018-11-23] MEDS: METHADONE 120 MG, METHADONE 10 MG PO SCH (06:39)
[2018-11-23] MEDS: IBUPROFEN 400 MG TABLET (FP) PO PRN ×3 (06:53→21:02)
[2018-11-23] MEDS: PRENATAL VITAMINS W/ FOLIC ACID TABLET (FP) PO SCH (10:06)
[2018-11-23] MEDS: SERTRALINE HCL 50 MG TABLET (FP) PO SCH (10:06)
[2018-11-23] MEDS: SILVER SULFADIAZINE 1% TOP CREAM 50 GM JAR TP SCH ×2 (10:06→21:03)
[2018-11-23] MEDS: LISINOPRIL 5 MG TABLET (FP) PO SCH (10:06)
[2018-11-23] MEDS: BUDESONIDE/FORMETEROL FUMARATE 80/4.5 mcg INHALER IH SCH ×2 (10:07→21:01)
[2018-11-23] MEDS: NICOTINE 14 MG/24 HOURS TOPICAL PATCH TD SCH (10:07)
[2018-11-23] MEDS ORDERED: PT OWN MED DRAWER 7, Y5N ONE (20:07)
[2018-11-23] MEDS: THIAMINE HCL 100 MG TABLET (FP) PO SCH (21:01)
[2018-11-23] MEDS: MONTELUKAST NA 10 MG TABLET PO SCH (21:01)
[2018-11-23] MEDS: hydrOXYzine PAMOATE 50 MG CAPSULE (FP) PO PRN (21:02)
[2018-11-23] MEDS: MELATONIN 5 MG TABLETS PO PRN (21:02)
[2018-11-24] MEDS ORDERED: METHADONE HCL 40 MG DISPERSABLE TABLET ONE (02:48)
[2018-11-24] MEDS ORDERED: METHADONE HCL 10 MG TABLET ONE (02:48)
[2018-11-24] MEDS: METHADONE 120 MG, METHADONE 10 MG PO SCH (06:32)
[2018-11-24] MEDS: IBUPROFEN 400 MG TABLET (FP) PO PRN ×2 (06:33→21:49)
[2018-11-24] MEDS: GABAPENTIN 300 MG CAPSULE (FP) PO SCH ×3 (06:33→21:47)
[2018-11-24] MEDS ORDERED: PT OWN MED DRAWER 7, Y5N ONE (09:18)
[2018-11-24] MEDS: NICOTINE 14 MG/24 HOURS TOPICAL PATCH TD SCH (10:44)
[2018-11-24] MEDS: PRENATAL VITAMINS W/ FOLIC ACID TABLET (FP) PO SCH (10:44)
[2018-11-24] MEDS: SILVER SULFADIAZINE 1% TOP CREAM 50 GM JAR TP SCH ×2 (10:45→21:49)
[2018-11-24] MEDS: LISINOPRIL 5 MG TABLET (FP) PO SCH (10:45)
[2018-11-24] MEDS: SERTRALINE HCL 50 MG TABLET (FP) PO SCH (10:46)
[2018-11-24] MEDS: BUDESONIDE/FORMETEROL FUMARATE 80/4.5 mcg INHALER IH SCH ×2 (10:46→21:50)
[2018-11-24] MEDS: hydrOXYzine PAMOATE 50 MG CAPSULE (FP) PO PRN ×2 (10:48→21:47)
[2018-11-24] MEDS: MONTELUKAST NA 10 MG TABLET PO SCH (21:47)
[2018-11-24] MEDS: THIAMINE HCL 100 MG TABLET (FP) PO SCH (21:47)
[2018-11-24] MEDS: MELATONIN 5 MG TABLETS PO PRN (21:48)
[2018-11-25] MEDS ORDERED: METHADONE HCL 10 MG TABLET ONE (03:28)
[2018-11-25] MEDS ORDERED: METHADONE HCL 40 MG DISPERSABLE TABLET ONE (03:28)
[2018-11-25] MEDS: METHADONE 120 MG, METHADONE 10 MG PO SCH (06:52)
[2018-11-25] MEDS: GABAPENTIN 300 MG CAPSULE (FP) PO SCH ×3 (06:53→21:20)
[2018-11-25] MEDS: IBUPROFEN 400 MG TABLET (FP) PO PRN ×2 (06:53→21:22)
[2018-11-25] MEDS: BUDESONIDE/FORMETEROL FUMARATE 80/4.5 mcg INHALER IH SCH ×2 (09:57→21:21)
[2018-11-25] MEDS: SERTRALINE HCL 50 MG TABLET (FP) PO SCH (09:57)
[2018-11-25] MEDS: LISINOPRIL 5 MG TABLET (FP) PO SCH (09:57)
[2018-11-25] MEDS: NICOTINE 14 MG/24 HOURS TOPICAL PATCH TD SCH (09:57)
[2018-11-25] MEDS: PRENATAL VITAMINS W/ FOLIC ACID TABLET (FP) PO SCH (09:57)
[2018-11-25] MEDS: SILVER SULFADIAZINE 1% TOP CREAM 50 GM JAR TP SCH ×2 (09:57→21:21)
[2018-11-25] MEDS ORDERED: PT OWN MED DRAWER 7, Y5N ONE (10:33)
[2018-11-25] MEDS: THIAMINE HCL 100 MG TABLET (FP) PO SCH (21:19)
[2018-11-25] MEDS: MELATONIN 5 MG TABLETS PO PRN (21:20)
[2018-11-25] MEDS: MONTELUKAST NA 10 MG TABLET PO SCH (21:20)
[2018-11-25] MEDS: hydrOXYzine PAMOATE 50 MG CAPSULE (FP) PO PRN (21:20)
[2018-11-26] MEDS ORDERED: METHADONE HCL 10 MG TABLET ONE (05:51)
[2018-11-26] MEDS ORDERED: METHADONE HCL 40 MG DISPERSABLE TABLET ONE (05:52)
[2018-11-26] MEDS: GABAPENTIN 300 MG CAPSULE (FP) PO SCH ×3 (06:28→21:23)
[2018-11-26] MEDS: METHADONE 120 MG, METHADONE 10 MG PO SCH (06:28)
[2018-11-26] MEDS ORDERED: PT OWN MED DRAWER 7, Y5N ONE (08:59)
[2018-11-26] MEDS: BUDESONIDE/FORMETEROL FUMARATE 80/4.5 mcg INHALER IH SCH ×2 (10:03→21:29)
[2018-11-26] MEDS: LISINOPRIL 5 MG TABLET (FP) PO SCH (10:03)
[2018-11-26] MEDS: PRENATAL VITAMINS W/ FOLIC ACID TABLET (FP) PO SCH (10:03)
[2018-11-26] MEDS: SILVER SULFADIAZINE 1% TOP CREAM 50 GM JAR TP SCH ×2 (10:03→21:29)
[2018-11-26] MEDS: SERTRALINE HCL 50 MG TABLET (FP) PO SCH (10:03)
[2018-11-26] MEDS: NICOTINE 14 MG/24 HOURS TOPICAL PATCH TD SCH (10:04)
[2018-11-26] MEDS: IBUPROFEN 400 MG TABLET (FP) PO PRN ×2 (10:06→18:19)
[2018-11-26] MEDS: MELATONIN 5 MG TABLETS PO PRN (21:23)
[2018-11-26] MEDS: THIAMINE HCL 100 MG TABLET (FP) PO SCH (21:23)
[2018-11-26] MEDS: MONTELUKAST NA 10 MG TABLET PO SCH (21:24)
[2018-11-26] MEDS: ACETAMINOPHEN 325 MG TABLET (FP) PO PRN (21:25)
[2018-11-26] MEDS: hydrOXYzine PAMOATE 50 MG CAPSULE (FP) PO PRN (21:25)
[2018-11-27] MEDS ORDERED: METHADONE HCL 10 MG TABLET ONE (05:59)
[2018-11-27] MEDS ORDERED: METHADONE HCL 40 MG DISPERSABLE TABLET ONE (06:00)
[2018-11-27] MEDS: METHADONE 120 MG, METHADONE 10 MG PO SCH (06:38)
[2018-11-27] MEDS: GABAPENTIN 300 MG CAPSULE (FP) PO SCH ×3 (06:39→21:27)
[2018-11-27] MEDS: IBUPROFEN 400 MG TABLET (FP) PO PRN ×2 (06:48→21:27)
[2018-11-27] MEDS: SILVER SULFADIAZINE 1% TOP CREAM 50 GM JAR TP SCH ×2 (10:01→21:28)
[2018-11-27] MEDS: PRENATAL VITAMINS W/ FOLIC ACID TABLET (FP) PO SCH (10:01)
[2018-11-27] MEDS: NICOTINE 14 MG/24 HOURS TOPICAL PATCH TD SCH (10:02)
[2018-11-27] MEDS: BUDESONIDE/FORMETEROL FUMARATE 80/4.5 mcg INHALER IH SCH ×2 (10:02→21:28)
[2018-11-27] MEDS: LISINOPRIL 5 MG TABLET (FP) PO SCH (10:02)
[2018-11-27] MEDS: SERTRALINE HCL 50 MG TABLET (FP) PO SCH (10:02)
[2018-11-27] MEDS: ACETAMINOPHEN 325 MG TABLET (FP) PO PRN (10:03)
[2018-11-27] MEDS: MELATONIN 5 MG TABLETS PO PRN (21:25)
[2018-11-27] MEDS: THIAMINE HCL 100 MG TABLET (FP) PO SCH (21:25)
[2018-11-27] MEDS: hydrOXYzine PAMOATE 50 MG CAPSULE (FP) PO PRN (21:26)
[2018-11-27] MEDS: MONTELUKAST NA 10 MG TABLET PO SCH (21:26)
[2018-11-28] MEDS ORDERED: METHADONE HCL 10 MG TABLET ONE (05:59)
[2018-11-28] MEDS ORDERED: METHADONE HCL 40 MG DISPERSABLE TABLET ONE (05:59)
[2018-11-28] MEDS: METHADONE 120 MG, METHADONE 10 MG PO SCH (06:17)
[2018-11-28] MEDS: GABAPENTIN 300 MG CAPSULE (FP) PO SCH ×3 (06:17→21:02)
[2018-11-28] MEDS: IBUPROFEN 400 MG TABLET (FP) PO PRN ×3 (06:20→21:02)
[2018-11-28] MEDS ORDERED: PT OWN MED DRAWER 7, Y5N ONE (08:51)
[2018-11-28] MEDS: BUDESONIDE/FORMETEROL FUMARATE 80/4.5 mcg INHALER IH SCH ×2 (09:51→21:03)
[2018-11-28] MEDS: PRENATAL VITAMINS W/ FOLIC ACID TABLET (FP) PO SCH (09:51)
[2018-11-28] MEDS: LISINOPRIL 5 MG TABLET (FP) PO SCH (09:52)
[2018-11-28] MEDS: NICOTINE 14 MG/24 HOURS TOPICAL PATCH TD SCH (09:52)
[2018-11-28] MEDS: SILVER SULFADIAZINE 1% TOP CREAM 50 GM JAR TP SCH ×2 (09:52→21:03)
[2018-11-28] MEDS: ACETAMINOPHEN 325 MG TABLET (FP) PO PRN (09:54)
[2018-11-28] MEDS: SERTRALINE HCL 50 MG TABLET (FP) PO SCH (09:54)
[2018-11-28] MEDS: hydrOXYzine PAMOATE 50 MG CAPSULE (FP) PO PRN ×2 (09:54→21:02)
--- NOTE | 2018-11-28 14:01 | PN ---
[facility] Progress Note Note: Patient is scheduled for discharge tomorrow. Scripts for 30 days supply of medications(Zoloft, Gabapentin) will be electronically transmitted to [facility] at [address] [place] [address]
[2018-11-28] MEDS: THIAMINE HCL 100 MG TABLET (FP) PO SCH (21:02)
[2018-11-28] MEDS: MONTELUKAST NA 10 MG TABLET PO SCH (21:02)
[2018-11-28] MEDS: MELATONIN 5 MG TABLETS PO PRN (21:03)
[2018-11-29] MEDS ORDERED: METHADONE 120 MG, METHADONE 10 MG PO SCH (06:00)
[2018-11-29] MEDS ORDERED: METHADONE HCL 10 MG TABLET ONE (06:18)
[2018-11-29] MEDS ORDERED: METHADONE HCL 40 MG DISPERSABLE TABLET ONE (06:18)
[2018-11-29] MEDS: GABAPENTIN 300 MG CAPSULE (FP) PO SCH (06:29)
[2018-11-29] MEDS: IBUPROFEN 400 MG TABLET (FP) PO PRN (06:29)
[2018-11-29 06:47] VITALS: TEMP 97.2
[2018-11-29] MEDS ORDERED: PT OWN MED DRAWER 7, Y5N ONE (08:39)
[2018-11-29] MEDS: LISINOPRIL 5 MG TABLET (FP) PO SCH (09:04)
[2018-11-29] MEDS: PRENATAL VITAMINS W/ FOLIC ACID TABLET (FP) PO SCH (09:04)
[2018-11-29] MEDS: NICOTINE 14 MG/24 HOURS TOPICAL PATCH TD SCH (09:04)
[2018-11-29] MEDS: SILVER SULFADIAZINE 1% TOP CREAM 50 GM JAR TP SCH (09:04)
[2018-11-29] MEDS: BUDESONIDE/FORMETEROL FUMARATE 80/4.5 mcg INHALER IH SCH (09:05)
[2018-11-29] MEDS: SERTRALINE HCL 50 MG TABLET (FP) PO SCH (09:05)
[2018-11-29] MEDS: hydrOXYzine PAMOATE 50 MG CAPSULE (FP) PO PRN (09:09)
[2018-11-29 09:12] VITALS: BP 130/83; PULSE 67
--- NOTE | 2018-11-29 13:29 | PN ---
[facility] Progress Note Note: PT COMPLETED REHAB AND DISCHARGED TODAY.P MET WITH HER COUNSELOR, LOAN SIMENTAL AND WAS REFERRED TO [facility]. PT REPORTS SHE HAS A PCP DR. HA AT [address], [place] FOR MEDICAL MANAGEMENT. ALERT O X 3. DENIES S/H/I. Home Medications Medication Instructions Recorded Atomoxetine HCl [Strattera -] 40 mg PO DAILY 11/11/18 Hydroxyzine Pamoate 50 mg PO HS PRN 11/11/18 Ibuprofen [Ibu] 800 mg PO TID PRN 11/11/18 Mupirocin gm TP TID 11/11/18 Clindamycin [Cleocin -] 300 mg PO TID #21 capsule 11/14/18 Budesonide/Formeterol Fumarate 1 inh PO BID #1 inhaler 11/25/18 [SYMBICORT 80/4.5mcg -] Lisinopril 5 mg PO DAILY #14 tablet 11/25/18 Montelukast Na [Singulair -] 10 mg PO HS #14 tablet 11/25/18 Gabapentin [Neurontin -] 300 mg PO TID #90 capsule 11/28/18 Sertraline HCl [Zoloft] 100 mg PO DAILY #30 tablet 11/28/18 Vital Signs - 24 hr 11/29/18 11/29/18 11/29/18 00:30 03:30 06:46 Temperature 97.2 F L Pulse Rate 60 Respiratory 18 18 18 Rate Blood Pressure 127/81 11/29/18 09:12 Temperature Pulse Rate 67 Respiratory Rate Blood Pressure 130/83 PLAN:FOLLOW UP WITH CD AFTERCARE RECOMMENDED FOLLOW UP WITH PCP WITHIN 1-2 WEEKS AFTER DISCHARGE.
== END 2018-11-29 09:20 | disposition home or self-care (01) | DRG 772 ==
LOC: YASAS 11:35 → Y3E 11:36
PROVIDERS: ADMIT Neuromusculoskeletal Medicine & OMM; ATTEND Neuromusculoskeletal Medicine & OMM
PROC: HZ42ZZZ Group Counseling for Substance Abuse Treatment, Cognitive-Behavioral (ICD-10-PCS; principal; 2018-11-15)
DX: F13.20 Sedative, hypnotic or anxiolytic dependence, uncomplicated (principal); F11.20 Opioid dependence, uncomplicated; F17.210 Nicotine dependence, cigarettes, uncomplicated; F19.280 Other psychoactive substance dependence with psychoactive substance-induced anxiety disorder; I83.93 Asymptomatic varicose veins of bilateral lower extremities; J45.20 Mild intermittent asthma, uncomplicated; B18.2 Chronic viral hepatitis C

== ENCOUNTER 2021-11-19 17:36 | Inpatient (IN) | payer OTHER ==
[2021-11-19 18:03] VITALS: BMI 31.8
[2021-11-19] MEDS ORDERED: NICOTINE 10 MG CARTRIDGE (INHALER) IH PRN (21:49)
[2021-11-19] MEDS ORDERED: BISMUTH SUBSALICYLATE 524 MG/30 ML PO PRN (21:49)
[2021-11-19] MEDS ORDERED: LOPERAMIDE HCL 2 MG CAPSULE PO PRN (21:49)
[2021-11-19] MEDS ORDERED: METHOCARBAMOL 500 MG TABLET PO PRN (21:49)
[2021-11-19] MEDS ORDERED: MAGNESIUM CITRATE 300 ML BOTTLE PO PRN (21:49)
[2021-11-19] MEDS ORDERED: ACETAMINOPHEN 325 MG TABLET (FP) PO PRN ×2 (21:49)
[2021-11-19] MEDS ORDERED: IBUPROFEN 400 MG TABLET (FP) PO PRN (21:49)
[2021-11-19] MEDS ORDERED: MAG HYDROX/AL HYDROX/SIMETH 30 ML UNIT-DOSE CUP PO PRN (21:49)
[2021-11-19] MEDS ORDERED: MAGNESIUM HYDROX 2400MG/30ML ORAL SUSPENSION 30 ML CUP PO PRN (21:49)
[2021-11-19] MEDS ORDERED: DICYCLOMINE HCL 10 MG CAPSULE PO PRN (21:49)
[2021-11-19] MEDS ORDERED: MENTHOL/PHENOL 1 EACH UD MM PRN (21:49)
[2021-11-19] MEDS ORDERED: ONDANSETRON *ODT* 4 MG TABLET SL PRN (21:49)
[2021-11-19] MEDS ORDERED: THIAMINE HCL 100 MG TABLET (FP) PO SCH (22:00)
[2021-11-19] MEDS ORDERED: MELATONIN 5 MG TABLETS PO SCH (22:00)
[2021-11-20] MEDS ORDERED: ALBUTEROL SO4 HFA INHALER IH PRN (00:57)
[2021-11-20 09:47] VITALS: BP 120/70; PULSE 94; TEMP 98.3
[2021-11-20] MEDS ORDERED: PRENATAL VITAMINS W/ FOLIC ACID TABLET (FP) PO SCH (10:00)
[2021-11-20 10:05] LABS: HEMATOCRIT 40.2 % (32.4-45.2); HEMOGLOBIN 13.6 GM/dL (10.7-15.3); MCH 31.4 pg (25.7-33.7); MCHC 33.8 g/dl (32.0-36.0); MEAN CELL VOLUME 92.8 fl (80-96); MEAN PLT VOLUME 9.3 fl (7.5-11.1); PLATELET COUNT 113 10^3/uL (134-434); RBC 4.33 M/mm3 (3.60-5.2); WHITE BLOOD COUNT 5.1 K/mm3 (4.0-10.0)
[2021-11-20 10:10] LABS: CALCIUM 8.7 mg/dL (8.5-10.1)
[2021-11-20 10:11] LABS: BLOOD UREA NITROGEN 12.3 mg/dL (7-18)
[2021-11-20 10:16] LABS: BILIRUBIN,TOTAL 0.2 mg/dL (0.2-1); TOT PROT 6.8 g/dl (6.4-8.2)
[2021-11-21 10:13] LABS: SARS-CoV-2 NAA Not Detected (Not Detected)
[2021-11-21 14:08] LABS: SARS-CoV-2 NAA Not Detected (Not Detected)
== END 2021-11-20 10:35 | disposition home or self-care (01) | DRG 773 ==
LOC: YASAS 17:36 → Y6N 22:37
PROVIDERS: ADMIT Allergy & Immunology; ATTEND Allergy & Immunology
PROC: HZ2ZZZZ Detoxification Services for Substance Abuse Treatment (ICD-10-PCS; principal; 2021-11-19)
DX: F13.20 Sedative, hypnotic or anxiolytic dependence, uncomplicated (principal); F11.20 Opioid dependence, uncomplicated; F14.20 Cocaine dependence, uncomplicated; F17.210 Nicotine dependence, cigarettes, uncomplicated; F34.1 Dysthymic disorder; J45.20 Mild intermittent asthma, uncomplicated; B18.2 Chronic viral hepatitis C; I83.93 Asymptomatic varicose veins of bilateral lower extremities; Z56.0 Unemployment, unspecified
CPT/HCPCS: 36415; 80053; 81025; 85027; 86780; 87811; C9803-CS; U0003; U0005

== ENCOUNTER 2023-10-01 13:38 | Inpatient (IN) | payer OTHER ==
[~2023-10-01 13:38] MED LIST: PRENATAL VITAMINS W/ FOLIC ACID TABLET (FP) PO SCH
[2023-10-01] MEDS ORDERED: ACETAMINOPHEN 325 MG TABLET (FP) PO PRN (14:42)
[2023-10-01] MEDS ORDERED: BENZOCAINE/MENTHOL (CHLORASEPTIC ) LOZENGE MM PRN (14:42)
[2023-10-01] MEDS ORDERED: IBUPROFEN 600 MG TABLET (FP) PO PRN (14:42)
[2023-10-01] MEDS ORDERED: NALOXONE HCL 0.4 MG/ML VIAL IM PRN (14:42)
[2023-10-01] MEDS ORDERED: MAGNESIUM HYDROX 2400MG/30ML ORAL SUSPENSION 30 ML CUP PO PRN (14:42)
[2023-10-01] MEDS ORDERED: IBUPROFEN 400 MG TABLET (FP) PO PRN (14:42)
[2023-10-01] MEDS ORDERED: hydrOXYzine PAMOATE 25 MG CAPSULE (FP) PO PRN (14:42)
[2023-10-01] MEDS ORDERED: BENZONATATE 200 MG CAPSULE PO PRN (14:42)
[2023-10-01] MEDS ORDERED: NALOXONE HCL (KLOXXADO) 8 MG SPRAY NS PRN (14:42)
[2023-10-01] MEDS ORDERED: guaiFENesin 600 MG TABLET.ER (FP) PO PRN (14:42)
[2023-10-01] MEDS ORDERED: LOPERAMIDE HCL 2 MG CAPSULE PO PRN (14:42)
[2023-10-01] MEDS ORDERED: MAG HYDROX/AL HYDROX/SIMETH 30 ML UNIT-DOSE CUP PO PRN (14:42)
[2023-10-01] MEDS ORDERED: POLYETHYLENE GLYCOL (HEALTHYLAX) 3350 17 GM PACKET PO PRN (14:42)
[2023-10-01] MEDS ORDERED: ALBUTEROL SO4 HFA INHALER IH PRN (15:11)
[2023-10-01] MEDS ORDERED: NICOTINE 7 MG/24 HOURS TOPICAL PATCH TD ONE (15:38)
[2023-10-01] MEDS ORDERED: PRENATAL VITAMINS W/ FOLIC ACID TABLET (FP) PO ONE (15:38)
[2023-10-01] MEDS: NICOTINE 7 MG/24 HOURS TOPICAL PATCH TD SCH (15:43)
[2023-10-01] MEDS: PRENATAL VITAMINS W/ FOLIC ACID TABLET (FP) PO SCH (15:56)
[2023-10-01 16:10] VITALS: BMI 25.1
[2023-10-01] MEDS: TUBERCULIN PPD 5 TU/0.1ML SYRINGE (IN PATIENT USE ONLY) ID ONE (18:57)
[2023-10-01] MEDS: MELATONIN 5 MG TABLETS PO SCH (21:37)
[2023-10-01] MEDS: THIAMINE HCL 100 MG TABLET (FP) PO SCH (21:37)
[2023-10-01] MEDS: BUDESONIDE/FORMETEROL FUMARATE 80/4.5 mcg INHALER IH SCH (21:38)
[2023-10-01] MEDS ORDERED: PATIENT'S OWN MEDICATION (NON-FORMULARY) (Zolpidem Tartrate [Ambien] 10 MG Tablet) PO SCH (22:00)
[2023-10-02] MEDS: SERTRALINE HCL 50 MG TABLET (FP) PO SCH (10:00)
[2023-10-02 10:41] LABS: HEMATOCRIT 37.4 % (32.4-45.2); HEMOGLOBIN 12.7 GM/dL (10.7-15.3); MCH 31.5 pg (25.7-33.7); MCHC 33.9 g/dl (32.0-36.0); MEAN CELL VOLUME 92.9 fl (80-96); PLATELET COUNT 137 10^3/uL (134-434); RBC 4.03 M/mm3 (3.60-5.2); RDW 13.8 % (11.6-15.6); WHITE BLOOD COUNT 4.7 K/mm3 (4.0-10.0)
[2023-10-02 10:44] LABS: CHLORIDE 107 mmol/L (98-107); POTASSIUM 4.6 mmol/L (3.5-5.1); SODIUM 141 mmol/L (136-145)
[2023-10-02 10:49] LABS: CALCIUM 8.3 mg/dL (8.5-10.1)
[2023-10-02 10:50] LABS: ANION GAP 2 mmol/L (4-13); BLOOD UREA NITROGEN 17.9 mg/dL (7-18); CO2 31 mmol/L (21-32); GLUCOSE,RANDOM 122 mg/dL (74-106)
[2023-10-02 10:52] LABS: SGOT/AST 20 U/L (15-37); SGPT/ALT 17 U/L (13-61)
[2023-10-02 10:54] LABS: BILIRUBIN,TOTAL 0.2 mg/dL (0.2-1); CREATININE 0.9 mg/dL (0.55-1.3); TOT PROT 6.2 g/dl (6.4-8.2)
[2023-10-02 10:55] LABS: ALK PHOS 108 U/L (45-117)
[2023-10-02 11:07] LABS: EPI CELLS >36 /uL (0-25.1); HYALINE CASTS 1 /uL (0-3.1); PH,URINE 6.5 (5.0-8.0); URINE APPEARANCE CLEAR; URINE BACTERIA 270 /uL (0-1359); URINE BILIRUBIN NEGATIVE (NEGATIVE); URINE COLOR YELLOW; URINE GLUCOSE (UA) NEGATIVE (NEGATIVE); URINE KETONE NEGATIVE (NEGATIVE); URINE LEUK ESTERASE TRACE (NEGATIVE); URINE NITRITE NEGATIVE (NEGATIVE); URINE PROTEIN NEGATIVE (NEGATIVE); URINE RBC 3 /uL (0-23.9); URINE WBC 23 /uL (0-25.8)
[2023-10-02] MEDS: methaDONE HCL 10 MG TABLET PO SCH (11:37)
[2023-10-02] MEDS: PATIENT'S OWN MEDICATION (NON-FORMULARY) (Sertraline Hcl [Zoloft] 100 MG Tablet) PO SCH (11:38)
[2023-10-02] MEDS: GABAPENTIN 400 MG CAPSULE PO SCH (13:15)
[2023-10-02 20:11] LABS: SYPHILIS W/ RPR CONF NON-REACTIVE (NONREACTIVE)
[2023-10-03] MEDS: SERTRALINE HCL 50 MG TABLET (FP) PO SCH (10:05)
[2023-10-03] MEDS: SUVOREXANT 10 MG TABLET PO PRN (21:22)
[2023-10-05] MEDS: LISINOPRIL 5 MG TABLET PO SCH ×2 (10:42→20:15)
[2023-10-05 21:56] VITALS: RESP 18
[2023-10-05] MEDS ORDERED: SUVOREXANT 10 MG TABLET PO PRN (22:00)
[2023-10-06 07:26] VITALS: BP 133/86; PULSE 65; TEMP 98.3
[2023-10-06] MEDS: LISINOPRIL 5 MG TABLET PO SCH (09:16)
== END 2023-10-06 10:57 | disposition home or self-care (01) | DRG 772 ==
LOC: YASAS 13:38 → Y5N 18:18
PROVIDERS: ADMIT Allergy & Immunology; ATTEND Psychiatry & Neurology Pain Medicine
PROC: HZ42ZZZ Group Counseling for Substance Abuse Treatment, Cognitive-Behavioral (ICD-10-PCS; principal; 2023-10-01)
DX: F14.20 Cocaine dependence, uncomplicated (principal); F11.20 Opioid dependence, uncomplicated; F17.210 Nicotine dependence, cigarettes, uncomplicated; F34.1 Dysthymic disorder; F41.9 Anxiety disorder, unspecified; I10 Essential (primary) hypertension; J45.20 Mild intermittent asthma, uncomplicated; Z86.19 Personal history of other infectious and parasitic diseases
CPT/HCPCS: 36415; 80053; 80305; 80307; 81003; 81025; 85027; 86780; 86803; 87522; 87635; 87811; 93005; 93010